=== PATIENT | female | born 1985 | race Caucasian/White ===

== ENCOUNTER 2019-04-02 13:52 | Inpatient (IN) | payer SELFPAY ==
[2019-04-02] MEDS ORDERED: IBUPROFEN 600 MG TABLET PO ONE (14:15)
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
[2019-04-02 14:51] LABS: ABSOLUTE EOSINOPHILS # (AUTO) 0.2 10^3/uL (0.0-0.6); ABSOLUTE LYMPHOCYTES (AUTO) 1.2 10^3/uL (0.5-4.7); ABSOLUTE MONOCYTES (AUTO) 1.2 10^3/uL (0.1-1.4); ABSOLUTE NEUT (AUTO) 10.9 10^3/uL (1.7-8.2); BASOPHILS % (AUTO) 0.2 % (0-2); EOSINOPHILS % (AUTO) 1.3 % (0-6); HEMATOCRIT 33.8 % (36.0-47.0); HEMOGLOBIN 11.1 g/dL (12.0-15.5); MEAN CORPUSCULAR HEMOGLOBIN 27.9 pg (27.0-33.4); MEAN CORPUSCULAR VOLUME 85 fl (80-97); MONOCYTES % (AUTO) 9.2 % (3-13); PLATELET COUNT 121 10^3/uL (150-450); RED CELL DISTRIBUTION WIDTH 14.3 % (11.5-14.0); SEGMENTED NEUTROPHILS % (AUTO) 80.3 % (42-78); TOTAL CELLS COUNTED % (AUTO) 100 %; WHITE BLOOD COUNT 13.6 10^3/uL (4.0-10.5)
[2019-04-02 15:03] LABS: ALBUMIN 2.7 g/dL (3.5-5.0); ALKALINE PHOSPHATASE 186 U/L (38-126); ANION GAP 11 (5-19); ASPARTATE AMINO TRANSFERASE 40 U/L (14-36); BILIRUBIN,DIRECT 0.5 mg/dL (0.0-0.4); BILIRUBIN,TOTAL 0.7 mg/dL (0.2-1.3); BLOOD UREA NITROGEN 14 mg/dL (7-20); CALCIUM 8.3 mg/dL (8.4-10.2); CARBON DIOXIDE 29 mmol/L (22-30); CHLORIDE 97 mmol/L (98-107); GLUCOSE 111 mg/dL (75-110); POTASSIUM 3.4 mmol/L (3.6-5.0); TOTAL PROTEIN 6.4 g/dL (6.3-8.2)
[2019-04-02 15:11] LABS: APPEARANCE,URINE SLIGHTLY-CLOUDY; BILIRUBIN,URINE SMALL (NEGATIVE); COLOR,URINE AMBER; GLUCOSE, URINE NEGATIVE (NEGATIVE); KETONES,URINE NEGATIVE (NEGATIVE); LEUKOCYTE ESTERASE,URINE TRACE (NEGATIVE); NITRITE,URINE NEGATIVE (NEGATIVE); PROTEIN,URINE 30 mg/dL (NEGATIVE); URINE SPECIFIC GRAVITY 1.016
[2019-04-02 15:25] LABS: URINE BARBITURATES SCREEN NEGATIVE; URINE BENZODIAZEPINES SCREEN NEGATIVE; URINE COCAINE SCREEN NEGATIVE; URINE MARIJUANA (THC) SCREEN UNCONFIRMED POSITIVE; URINE METHADONE SCREEN NEGATIVE; URINE PHENCYCLIDINE SCREEN NEGATIVE
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
[2019-04-02] MEDS ORDERED: NORMAL SALINE 1000 ML 1,000 ML IV ONE ×2 (15:48→17:08)
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
--- NOTE | 2019-04-02 16:43 | RADIOLOGY REPORT (SQ) ---
EXAM DESCRIPTION: CTA CHEST COMPLETED DATE/TIME: 04/02/2019 4:31 pm REASON FOR STUDY: eval for septic emboli, abn CXR COMPARISON: Chest radiograph TECHNIQUE: CT scan of the chest performed using helical scanning technique with dynamic intravenous contrast injection. Images reviewed with lung, soft tissue and bone windows. Reconstructed coronal and sagittal MPR images reviewed. Additional 3 dimensional post-processing performed to develop Maximal Intensity Projection images (RI P). All images stored on PACS. All CT scanners at this facility use dose modulation, iterative reconstruction, and/or weight based d osing when appropriate to reduce radiation dose to as low as reasonably achievable (ALARA). [facility]: Dose Right [facility]: CareDose [facility]: Dose Right [facility]: Teradose 4D [facility]: [employer] CONTRAST TYPE AND DOSE: contrast/concentration: Isovue 350.00 mg/ml; Total Contrast Delivered: 43.0 ml; Total Saline Delivered: 73.0 ml Contrast bolus optimized for the pulmonary arteries. Not diagnostic for the aorta. RENAL FUNCTION: None required. The patient is less than 50 years old. RADIATION DOSE: CT Rad equipment meets quality standard of care and radiation dose reduction techniq ues were employed. CTDIvol: 6.5 - 7.5 mGy. DLP: 248 mGy-cm. . LIMITATIONS: None. FINDINGS: LUNGS AND PLEURA: There are multiple poorly defined cavitary masses throughout both lungs. No effusions. No pneumothorax. AORTA AND GREAT VESSELS: No aneurysm. Contrast bolus not optimized for the aorta. HEART: No pericardial effusion. No significant coronary artery calcifications. PULMONARY ARTERIES: No emboli visualized in the main pulmonary arteries or the segmental branches. HILAR AND MEDIASTINAL STRUCTURES: No identified masses or abnormal nodes. HARDWARE: None in the chest. UPPER ABDOMEN: No significant findings. Limited exam. THYROID AND OTHER SOFT TISSUES: No masses. No adenopathy. BONES: No acute or significant finding. 3D MIPS: Confirm above findings. OTHER: No other significant finding. IMPRESSION: Multiple cavitary masses throughout both lungs. In the clinical setting of IV drug use, this represents septic emboli. . Metastatic disease possible though unlikely in this clinical setting. COMMENT: Quality ID # [id number]: Final reports with documentation of one or more dose reduction techniques (e.g., Automated exposure control, adjustment of the mA and/or kV according to patient size, use of iterative reconstruction technique) TECHNICAL DOCUMENTATION: JOB ID: [id number] [facility] [employer]- All Rights Reserved Reading location - IP/workstation name: [email or web address]
[2019-04-02] MEDS ORDERED: PIPERACILLIN/TAZOBACTAM 3.375 GM VIAL IV ONE (17:26)
[2019-04-02] MEDS ORDERED: VANCOMYCIN HCL INJ 1000 MG VIAL IV ONE (17:26)
[2019-04-02] MEDS ORDERED: ONDANSETRON HCL INJ/PF 4 MG/2 ML SDV IV PRN (18:10)
[2019-04-02] MEDS ORDERED: OXYCODONE-ACETAMINOPHEN 5-325 MG TABLET PO PRN (18:10)
[2019-04-02] MEDS ORDERED: NORMAL SALINE 1000 ML 1,000 ML with POTASSIUM CHLORIDE 20 MEQ IV PRN ×2 (18:10)
[2019-04-02] MEDS ORDERED: VANCOMYCIN HCL 0 MG in DEXTROSE 5%-WATER 250 ML IV NR (18:15)
--- NOTE | 2019-04-02 18:19 | Progress Note Acknowledgement ---
Progress Note Acknowledgement Progess Note Acknowledgement: I, the undersigned member of the medical staff with appropriate privileges and with supervisory authority over [Lee Hebert], a dependent practice allied health professional, acknowledge that I have reviewed the progress notes entered on this patient, and in my professional judgment believe that the assessment made and/or any care evidenced was appropriate
[2019-04-02] MEDS ORDERED: POTASSI CL 20 MEQ/NS 1L 1000 ML IV PRN (18:24)
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
[2019-04-02] MEDS ORDERED: TUBERCULIN,PURIF.PROT.DERIV. 5 TU/0.1 ML TEST 1 ML VIAL ID ONE (20:00)
[2019-04-02] MEDS: HYDROMORPHONE HCL INJ/PF 2 MG/ML AMPULE IV PRN (20:46)
[2019-04-02] MEDS: TEMAZEPAM 15 MG CAPSULE PO PRN (22:18)
--- NOTE | 2019-04-02 22:35 | XCELERA REPORT ---
[address] [address] Transthoracic Echocardiogram Report Name: CLEMENTINE LITTLEJOHN Age: 33 yrs Gender: Female : 1985 Patient Status: Inpatient Patient Location: [facility]^A Study Date: 04/02/2019 07:46 PM Height: 62 in Weight: 106 lb BSA: 1.5 m2 Procedure: A two-dimensional transthoracic echocardiogram with color flow and Doppler was performed. The study was technically difficult with many images being suboptimal in quality. The study was technically limited with all images being suboptimal in quality. Reason For Study: septic emboli Endocarditis History: septic emboli Endocarditis. Ordering Physician: TRINA DENSON Performed By: Francine Grover Interpretation Summary Findings discussed with Dr.Paul Concepcion,,Rustist Physician. The left ventricle is normal in size. There is normal left ventricular wall thickness. LV EF is > than 55% The left ventricular ejection fraction is within normal limits. Doppler measurements suggest impaired left ventricular relaxation, which is associated with grade I/IV or mild diastolic dysfunction The left ventricular wall motion is normal. Flattened septum is consistent with RV volume overload There is no thrombus. No defenite ASD or PFO seen The right ventricle is not well visualized secondary to technical limitations The right ventricular systolic function is mildly reduced. The right atrium is mild to moderately dilated. The left atrial size is normal. There is no evidence of mitral valve prolapse. There is no vegetation seen on the mitral valve. There is no mitral valve stenosis. There is a trace amount of mitral regurgitation There is no aortic valvular vegetation. There is no aortic valve stenosis No aortic regurgitation is present. There is a moderate size vegetation or mass on the tricuspid valve. This is freely mobile. There is no tricuspid stenosis. There is a severe amount of tricuspid regurgitation Calculated RVSP is 40 to 45 mm of Hg , with RA mean of 10 to 15.This is mild pulmonary hypertension.I suspect there is undersampling of TR jet and hence underestimation of RVSP. There is no pulmonic valvular stenosis. There is no pulmonic valvular regurgitation. The aortic root is normal size. The inferior vena cava appeared normal and decreased < 50% with respiration (RAP 10-15 mmHg) There is no pericardial effusion. Findings discussed with Dr.Paul Concepcion,Rustist Physician. MMode/2D Measurements & Calculations RVDd: 2.5 cm LVIDd: 4.3 cm FS: 26.8 % Ao root diam: 2.8 cm IVSd: 0.64 cm LVIDs: 3.1 cm EDV(Teich): Ao root area: LVPWd: 0.66 cm 81.1 ml 6.1 cm2 ESV(Teich): LA dimension: 2.9 cm 38.4 ml EF(Teich): 52.6 % LVLd ap4: 6.4 cm SV(MOD-sp4): EDV(MOD-sp4): 25.0 ml 44.0 ml LVLs ap4: 4.7 cm ESV(MOD-sp4): 19.0 ml EF(MOD-sp4): 56.8 % Doppler Measurements & Calculations MV E max luke: MV P1/2t max luke: Ao V2 max: LV V1 max P.4 cm/sec 85.3 cm/sec 127.0 cm/sec 4.5 mmHg MV A max luke: MV P1/2t: 50.1 msec Ao max P.5 mmHgLV V1 max: 80.6 cm/sec MVA(P1/2t): 4.4 cm2 106.1 cm/sec MV E/A: 0.92 MV dec slope: 499.1 cm/sec2 MV dec time: 0.23 sec PA V2 max: TR max luke: MV P1/2t-pr_phl: 109.7 cm/sec 274.2 cm/sec 50.1 msec PA max P.8 mmHgTR max P.1 mmHg Left Ventricle The left ventricle is normal in size. There is normal left ventricular wall thickness. LV EF is > than 55%. The left ventricular ejection fraction is within normal limits. Doppler measurements suggest impaired left ventricular relaxation, which is associated with grade I/IV or mild diastolic dysfunction. The left ventricular wall motion is normal. Flattened septum is consistent with RV volume overload. There is no thrombus. No defenite ASD or PFO seen. Right Ventricle The right ventricle is not well visualized secondary to technical limitations. The right ventricle is mildly dilated. The right ventricular systolic function is mildly reduced. Atria The right atrium is mild to moderately dilated. The left atrial size is normal. Mitral Valve There is no evidence of mitral valve prolapse. There is no vegetation seen on the mitral valve. There is no mitral valve stenosis. There is a trace amount of mitral regurgitation. Aortic Valve There is no aortic valvular vegetation. There is no aortic valve stenosis. No aortic regurgitation is present. Tricuspid Valve There is a moderate size vegetation or mass on the tricuspid valve. This is freely mobile. There is no tricuspid stenosis. There is a severe amount of tricuspid regurgitation. Calculated RVSP is 40 to 45 mm of Hg , with RA mean of 10 to 15.This is mild pulmonary hypertension.I suspect there is undersampling of TR jet and hence underestimation of RVSP. Pulmonic Valve There is no pulmonic valvular stenosis. There is no pulmonic valvular regurgitation. Great Vessels The aortic root is normal size. The inferior vena cava appeared normal and decreased < 50% with respiration (RAP 10-15 mmHg). Effusions There is no pericardial effusion. : TRINA DENSON > Ariadne Wilkinson
[2019-04-03] MEDS: PIPERACILLIN SODIUM/TAZOBACTAM 3.375 GM in NORMAL SALINE 100 ML IV SCH ×4 (00:44→21:07)
[2019-04-03] MEDS: VANCOMYCIN HCL 500 MG in DEXTROSE 5%-WATER 100 ML IV SCH ×3 (02:30→21:08)
[2019-04-03] MEDS: HYDROMORPHONE HCL INJ/PF 2 MG/ML AMPULE IV PRN ×4 (04:16→21:06)
--- NOTE | 2019-04-03 08:17 | PDOC PROGRESS REPORT ---
Subjective Progress Note for:: 04/03/19 Subjective:: Continued pain in her coccyx Reason For Visit: MULTIPLE SEPTIC EMBOLI, IV DRUG ABUSE, TOBACCO Physical Exam Vital Signs: Temp Pulse Resp BP Pulse Ox 99.0 F 119 H 38 H 100/56 L 97 04/03/19 00:55 04/03/19 07:00 04/03/19 00:55 04/03/19 01:01 04/03/19 00:55 Intake & Output 04/02/19 04/03/19 04/04/19 06:59 06:59 06:59 Intake Total 2630 Balance 2630 Weight 50.1 kg General appearance: PRESENT: no acute distress, well-developed, well-nourished Head exam: PRESENT: atraumatic, normocephalic Eye exam: PRESENT: conjunctiva pink, EOMI, PERRLA. ABSENT: scleral icterus Ear exam: PRESENT: normal external ear exam Mouth exam: PRESENT: moist, tongue midline Neck exam: ABSENT: carotid bruit, JVD, lymphadenopathy, thyromegaly Respiratory exam: PRESENT: clear to auscultation michelle. ABSENT: rales, rhonchi, wheezes Cardiovascular exam: PRESENT: RRR. ABSENT: diastolic murmur, rubs, systolic murmur Pulses: PRESENT: normal dorsalis pedis pul Vascular exam: PRESENT: normal capillary refill GI/Abdominal exam: PRESENT: normal bowel sounds, soft. ABSENT: distended, guarding, mass, organolmegaly, rebound, tenderness Rectal exam: PRESENT: deferred Extremities exam: PRESENT: full ROM. ABSENT: calf tenderness, clubbing, pedal edema Neurological exam: PRESENT: alert, awake, oriented to person, oriented to place, oriented to time, oriented to situation, CN II-XII grossly intact. ABSENT: m otor sensory deficit Psychiatric exam: PRESENT: appropriate affect, normal mood. ABSENT: homicidal ideation, suicidal ideation Skin exam: PRESENT: dry, intact, warm, other - Multiple bruising. ABSENT: cyanosis, rash Results Laboratory Results: 04/02/19 14:29 04/02/19 14:29 04/02/19 04/02/19 04/02/19 14:27 14:29 14:29 WBC 13.6 H RBC 4.00 Hgb 11.1 L Hct 33.8 L MCV 85 MCH 27.9 MCHC 33.0 RDW 14.3 H Plt Count 121 L Seg Neutrophils % 80.3 H Sodium 136.9 L Potassium 3.4 L Chloride 97 L Carbon Dioxide 29 Anion Gap 11 BUN 14 Creatinine 0.54 Est GFR ( Amer) > 60 Glucose 111 H Lactic Acid Calcium 8.3 L Total Bilirubin 0.7 AST 40 H Alkaline Phosphatase 186 H Total Protein 6.4 Albumin 2.7 L Urine Color JACKIE Urine Appearance SLIGHTLY-CLOUDY Urine pH 6.0 Ur Specific Cobb 1.016 Urine Protein 30 H Urine Glucose (UA) NEGATIVE Urine Ketones NEGATIVE Urine Blood SMALL H Urine Nitrite NEGATIVE Ur Leukocyte Esterase TRACE H Urine WBC (Auto) 6 Urine RBC (Auto) 6 04/02/19 18:08 WBC RBC Hgb Hct MCV MCH MCHC RDW Plt Count Seg Neutrophils % Sodium Potassium Chloride Carbon Dioxide Anion Gap BUN Creatinine Est GFR ( Amer) Glucose Lactic Acid 1.7 Calcium Total Bilirubin AST Alkaline Phosphatase Total Protein Albumin Urine Color Urine Appearance Urine pH Ur Specific Cobb Urine Protein Urine Glucose (UA) Urine Ketones Urine Blood Urine Nitrite Ur Leukocyte Esterase Urine WBC (Auto) Urine RBC (Auto) Impressions: Lumbar Spine X-Ray 04/02/19 14:15 IMPRESSION: NORMAL 5 VIEW LUMBAR SPINE. Ribs w/Chest X-Ray 04/02/19 14:15 IMPRESSION: SEPTIC EMBOLI. NO RIB FRACTURES. Chest/Abdomen CTA 04/02/19 15:30 IMPRESSION: Multiple cavitary masses throughout both lungs. In the clinical setting of IV drug use, this represents septic emboli. . Metastatic disease possible though unlikely in this clinical setting. Assessment and Plan - Diagnosis (1) Septic pulmonary embolism Qualifiers: Chronicity: acute Is this a current diagnosis for this admission?: Yes Plan: April 02, 2019-at this time will admit patient inpatient. Will give patient IV vancomycin and Zosyn. Await cultures. Will obtain an echocardiogram and a PRAFUL if echocardiogram is nonconclusive. We will continue to follow patient make change plan of care as appropriate April 03, 2019-continue IV vancomycin and Zosyn at this time. Await cultures. Await echocardiogram. May change plan of care as appropriate. (2) Cavitary lesion of lung Is this a current diagnosis for this admission?: Yes Plan: April 02, 2019-patient with known IV drug abuse heroin. Patient with multiple cavitary lesions throughout both right and left lung. We will treat patient with Vanco and Zosyn at this time will obtain an echocardiogram. I am also going to check patient for HIV, hepatitis, TB with AFB and QuantiFERON testing patient will be in airborne isolation April 03, 2019-HIV negative. Hepatitis is pending. TB and AFB and QuantiFERON is pending. Will order 2 more separate AFBs. Await echocardiogram (3) Hypokalemia Is this a current diagnosis for this admission?: Yes Plan: April 02, 2019-normal saline with 20 mg KCl at 100 mL an hour repeat BMP in the a.m. April 03, 2019-await a.m. labs continue saline with potassium chloride DC when potassium is normal limits. (4) Pain Is this a current diagnosis for this admission?: Yes Plan: April 02, 2019-Percocet 5/325 mg 1 p.o. every 4 hours as needed and Dilaudid 1 mg IV every 4 hours as needed. April 03, 2019-DC Percocet. Methadone 20 mg scheduled every 8 hours increase Dilaudid 1 mg every 3 hours PRN. (5) Hyponatremia Is this a current diagnosis for this admission?: Yes Plan: April 02, 2019-very mild sodium 136 patient will begin normal saline we will repeat BMP in a.m. April 03, 2019-awaiting a.m. labs (6) Tobacco abuse Is this a current diagnosis for this admission?: Yes Plan: April 02, 2019-continue to drapery counselor on cessation of tobacco abuse. Nicotine patches as needed April 03, 2019-continue tobacco abuse counseling nicotine patches as needed - Time Time Spent with patient: 15-24 minutes - Inpatient Certification Based on my medical assessment, after consideration of the patient's comorbidities, presenting symptoms, or acuity I expect that the services needed warrant INPATIENT care.: Yes I certify that my determination is in accordance with my understanding of Medicare's requirements for reasonable and necessary INPATIENT services [42 CFR 412.3e].: Yes Medical Necessity: Other - IV antibodies, IV fluids
[2019-04-03 08:43] LABS: ABSOLUTE LYMPHOCYTES (AUTO) 1.4 10^3/uL (0.5-4.7); ABSOLUTE MONOCYTES (AUTO) 1.5 10^3/uL (0.1-1.4); ABSOLUTE NEUT (AUTO) 12.6 10^3/uL (1.7-8.2); BASOPHILS % (AUTO) 0.3 % (0-2); EOSINOPHILS % (AUTO) 0.3 % (0-6); HEMATOCRIT 34.6 % (36.0-47.0); HEMOGLOBIN 11.6 g/dL (12.0-15.5); LYMPHOCYTES % (AUTO) 9.2 % (13-45); MEAN CORPUSCULAR HEMOGLOBIN 28.1 pg (27.0-33.4); MEAN CORPUSCULAR HGB CONC 33.5 g/dL (32.0-36.0); MEAN CORPUSCULAR VOLUME 84 fl (80-97); MONOCYTES % (AUTO) 9.7 % (3-13); RED BLOOD COUNT 4.11 10^6/uL (3.72-5.28); SEGMENTED NEUTROPHILS % (AUTO) 80.5 % (42-78); TOTAL CELLS COUNTED % (AUTO) 100 %; WHITE BLOOD COUNT 15.6 10^3/uL (4.0-10.5)
[2019-04-03 09:01] LABS: PLATELET COUNT 146 10^3/uL (150-450)
[2019-04-03 09:08] LABS: ANION GAP 11 (5-19); BLOOD UREA NITROGEN 7 mg/dL (7-20); CALCIUM 7.7 mg/dL (8.4-10.2); CARBON DIOXIDE 25 mmol/L (22-30); CHLORIDE 100 mmol/L (98-107); GLUCOSE 129 mg/dL (75-110); PHOSPHORUS 4.9 mg/dL (2.5-4.5); POTASSIUM 4.1 mmol/L (3.6-5.0)
[2019-04-03] MEDS: METHADONE HCL 10 MG TABLET PO SCH ×3 (09:19→21:07)
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
--- NOTE | 2019-04-03 09:28 | RADIOLOGY REPORT (SQ) ---
EXAM DESCRIPTION: ANKLE RIGHT AP/LATERAL COMPLETED DATE/TIME: 04/03/2019 9:18 am REASON FOR STUDY: RIGHT ANKLE PAIN COMPARISON: None. NUMBER OF VIEWS: Two views. TECHNIQUE: AP and lateral radiographic images acquired of the right ankle. LIMITATIONS: None. FINDINGS: MINERALIZATION: Normal. BONES: No acute fracture or dislocation. No worrisome bone lesions. JOINTS: No effusions. SOFT TISSUES: No soft tissue swelling. No foreign body. OTHER: No other significant finding. IMPRESSION: NEGATIVE STUDY OF THE RIGHT ANKLE. NO RADIOGRAPHIC EVIDENCE OF ACUTE INJURY. TECHNICAL DOCUMENTATION: JOB ID: [id number] [employer]- All Rights Reserved Reading location - IP/workstation name: [email or web address]
--- NOTE | 2019-04-03 09:29 | RADIOLOGY REPORT (SQ) ---
EXAM DESCRIPTION: PELVIS AP COMPLETED DATE/TIME: 04/03/2019 9:19 am REASON FOR STUDY: PELVIC/SACRAL PAIN COMPARISON: None. NUMBER OF VIEWS: One view TECHNIQUE: AP Pelvis LIMITATIONS: None. FINDINGS: MINERALIZATION: Normal. HIPS: No acute fracture or dislocation. No worrisome bone lesions. PELVIS AND SACRUM: No acute fracture or dislocation. No worrisome bone lesions. PUBIS AND ISCHIUM: No acute fracture. LOWER LUMBAR SPINE: No significant findings as visualized. SOFT TISSUES: No findings. OTHER: No other significant finding. IMPRESSION: NEGATIVE STUDY OF THE PELVIS. COMMENT: Pelvic fractures are often occult on plain radiographs. If strong clinical suspicion for f racture, recommend CT or MR. TECHNICAL DOCUMENTATION: JOB ID: [id number] [email or web address]- All Rights Reserved Reading location - IP/workstation name: [email or web address]
[2019-04-03] MEDS: MAGNESIUM SULFATE/D5W 1 GM/100 ML RTUPB IV SCH ×2 (14:10→17:32)
--- NOTE | 2019-04-03 14:15 | RADIOLOGY REPORT (SQ) ---
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 FLUOROSCOPY TIME: 0.09 seconds 2 images saved to PACS. TECHNIQUE: Fluoroscopic and ultrasound guided PICC placement. LIMITATIONS: None. PROCEDURE: After written consent and assessment were obtained, the patient was brought into the fluo roscopy room and placed supine on the table. Ultrasound evaluation of potential access sites were per formed. After successfully identifying a patent left basilic vein, the left arm was prepped and drape d in a sterile fashion along with the ultrasound probe. The entry site was anesthetized with 1% lidoc marlene. A 21 gauge 7 cm needle was advanced through the skin and into the brachial vein under live ultr asound guidance. An ultrasound image was saved to PACS confirming access site. A .018 guide wire wa s then inserted through the needle and into the venous system. The needle was then removed and an 11 blade scalpel was used to make a 1cm skin incision. A 5 fr peel-away sheath was advanced over the wi re and into the venous system. A measurement was then made using the existing wire and live fluorosco pic guidance. The wire was then removed and trimmed. The PICC was advanced through the peel-away cormier th and into the venous system. The peel-away sheath was removed and the catheter was adhered to the p atients arm with a stat lock. The catheter was then aspirated and flushed and a sterile bandage was p laced over the access site. A fluoroscopic spot image was saved to PACS confirming the catheter tip within the superior vena cava. IMPRESSION: SUCCESSFUL PLACEMENT OF A 5 FR all LUMEN 33 CM PICC IN THE LEFT BRACHIAL VEIN. COMMENT: Patient medication list reviewed: Yes- Quality ID# 130:Eligible professional attests to doc umenting in the medical record they obtained, updated, or reviewed the patient's current medications. . Quality ID 145: Final reports for procedures using fluoroscopy that document radiation exposure flaca timothy, or exposure time and number of fluorographic images (if radiation exposure indices are not avail able) Quality ID #76: The patient was prepped and draped using maximum sterile barrier technique including cap, mask, sterile gown, sterile gloves, a large sterile sheet, hand hygiene, and 2% Chlorhexidine fo r cutaneous antisepsis. When ultrasound is used, sterile ultrasound techniques are followed requiring sterile gel and sterile probes. TECHNICAL DOCUMENTATION: JOB ID: [id number] [employer]- All Rights Reserved rev-12/27 Reading location - IP/workstation name: [email or web address]
--- NOTE | 2019-04-03 14:15 | RADIOLOGY REPORT (SQ) ---
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 FLUOROSCOPY TIME: 0.09 seconds 2 images saved to PACS. TECHNIQUE: Fluoroscopic and ultrasound guided PICC placement. LIMITATIONS: None. PROCEDURE: After written consent and assessment were obtained, the patient was brought into the fluo roscopy room and placed supine on the table. Ultrasound evaluation of potential access sites were per formed. After successfully identifying a patent left basilic vein, the left arm was prepped and drape d in a sterile fashion along with the ultrasound probe. The entry site was anesthetized with 1% lidoc marlene. A 21 gauge 7 cm needle was advanced through the skin and into the brachial vein under live ultr asound guidance. An ultrasound image was saved to PACS confirming access site. A .018 guide wire wa s then inserted through the needle and into the venous system. The needle was then removed and an 11 blade scalpel was used to make a 1cm skin incision. A 5 fr peel-away sheath was advanced over the wi re and into the venous system. A measurement was then made using the existing wire and live fluorosco pic guidance. The wire was then removed and trimmed. The PICC was advanced through the peel-away cormier th and into the venous system. The peel-away sheath was removed and the catheter was adhered to the p atients arm with a stat lock. The catheter was then aspirated and flushed and a sterile bandage was p laced over the access site. A fluoroscopic spot image was saved to PACS confirming the catheter tip within the superior vena cava. IMPRESSION: SUCCESSFUL PLACEMENT OF A 5 FR all LUMEN 33 CM PICC IN THE LEFT BRACHIAL VEIN. COMMENT: Patient medication list reviewed: Yes- Quality ID# 130:Eligible professional attests to doc umenting in the medical record they obtained, updated, or reviewed the patient's current medications. . Quality ID 145: Final reports for procedures using fluoroscopy that document radiation exposure flaca timothy, or exposure time and number of fluorographic images (if radiation exposure indices are not avail able) Quality ID #76: The patient was prepped and draped using maximum sterile barrier technique including cap, mask, sterile gown, sterile gloves, a large sterile sheet, hand hygiene, and 2% Chlorhexidine fo r cutaneous antisepsis. When ultrasound is used, sterile ultrasound techniques are followed requiring sterile gel and sterile probes. TECHNICAL DOCUMENTATION: JOB ID: [id number] [employer]- All Rights Reserved rev-12/27 Reading location - IP/workstation name: [email or web address]
--- NOTE | 2019-04-03 14:15 | RADIOLOGY REPORT (SQ) ---
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 FLUOROSCOPY TIME: 0.09 seconds 2 images saved to PACS. TECHNIQUE: Fluoroscopic and ultrasound guided PICC placement. LIMITATIONS: None. PROCEDURE: After written consent and assessment were obtained, the patient was brought into the fluo roscopy room and placed supine on the table. Ultrasound evaluation of potential access sites were per formed. After successfully identifying a patent left basilic vein, the left arm was prepped and drape d in a sterile fashion along with the ultrasound probe. The entry site was anesthetized with 1% lidoc marlene. A 21 gauge 7 cm needle was advanced through the skin and into the brachial vein under live ultr asound guidance. An ultrasound image was saved to PACS confirming access site. A .018 guide wire wa s then inserted through the needle and into the venous system. The needle was then removed and an 11 blade scalpel was used to make a 1cm skin incision. A 5 fr peel-away sheath was advanced over the wi re and into the venous system. A measurement was then made using the existing wire and live fluorosco pic guidance. The wire was then removed and trimmed. The PICC was advanced through the peel-away cormier th and into the venous system. The peel-away sheath was removed and the catheter was adhered to the p atients arm with a stat lock. The catheter was then aspirated and flushed and a sterile bandage was p laced over the access site. A fluoroscopic spot image was saved to PACS confirming the catheter tip within the superior vena cava. IMPRESSION: SUCCESSFUL PLACEMENT OF A 5 FR all LUMEN 33 CM PICC IN THE LEFT BRACHIAL VEIN. COMMENT: Patient medication list reviewed: Yes- Quality ID# 130:Eligible professional attests to doc umenting in the medical record they obtained, updated, or reviewed the patient's current medications. . Quality ID 145: Final reports for procedures using fluoroscopy that document radiation exposure flaca timothy, or exposure time and number of fluorographic images (if radiation exposure indices are not avail able) Quality ID #76: The patient was prepped and draped using maximum sterile barrier technique including cap, mask, sterile gown, sterile gloves, a large sterile sheet, hand hygiene, and 2% Chlorhexidine fo r cutaneous antisepsis. When ultrasound is used, sterile ultrasound techniques are followed requiring sterile gel and sterile probes. TECHNICAL DOCUMENTATION: JOB ID: [id number] [employer]- All Rights Reserved rev-12/27 Reading location - IP/workstation name: [email or web address]
[2019-04-03] MEDS ORDERED: MAGNESIUM SULFATE/D5W 1 GM/100 ML RTUPB IV ONE (15:49)
[2019-04-03] MEDS ORDERED: HYDROMORPHONE HCL INJ/PF 2 MG/ML AMPULE IV ONE (16:09)
[2019-04-03] MEDS ORDERED: NORMAL SALINE 1000 ML 1,000 ML IV PRN (16:11)
[2019-04-03 17:16] LABS: PHOSPHORUS 3.3 mg/dL (2.5-4.5)
--- NOTE | 2019-04-03 19:23 | RADIOLOGY REPORT (SQ) ---
EXAM DESCRIPTION: CT ABD/PELVIS WITH IV ONLY COMPLETED DATE/TIME: 04/03/2019 6:58 pm REASON FOR STUDY: buttock pain COMPARISON: 04/02/2019 TECHNIQUE: CT scan of the abdomen and pelvis performed using helical scanning technique with dynamic intravenous contrast injection. No oral contrast. Images reviewed with lung, soft tissue, and bone w indows. Reconstructed coronal and sagittal MPR images reviewed. Delayed images for evaluation of the urinary system also acquired. All images stored on PACS. All CT scanners at this facility use dose modulation, iterative reconstruction, and/or weight based d osing when appropriate to reduce radiation dose to as low as reasonably achievable (ALARA). [facility]: Dose Right [facility]: CareDose [facility]: Dose Right [facility]: Teradose 4D [facility]: WallCompass CONTRAST TYPE AND DOSE: contrast/concentration: Isovue 350.00 mg/ml; Total Contrast Delivered: 57.0 ml; Total Saline Delivered: 65.0 ml RENAL FUNCTION: None required. The patient is less than 50 years old. RADIATION DOSE: CT Rad equipment meets quality standard of care and radiation dose reduction techniq ues were employed. CTDIvol: 3.4 - 4.0 mGy. DLP: 422 mGy-cm.. LIMITATIONS: None. FINDINGS: LOWER CHEST: Increasing consolidation in both lower lobes and small pleural effusions. Pe rsistent numerous cavitary lesions. LIVER: Mild hepatomegaly. . No enhancing masses. No dilated ducts. SPLEEN: Normal size. No focal lesions. PANCREAS: No masses identified. No significant calcifications. No adjacent inflammation or peripancre atic fluid collections. Pancreatic duct not dilated. GALLBLADDER: No calcified stones. No inflammatory changes to suggest cholecystitis. ADRENAL GLANDS: No significant masses. RIGHT KIDNEY AND URETER: No cysts identified. No solid masses identified. No calcified stones. No hyd ronephrosis or hydroureter. LEFT KIDNEY AND URETER: No cysts identified. No solid masses identified. No calcified stones. No hydr onephrosis or hydroureter. AORTA AND VESSELS: No aneurysm. No dissection. Renal arteries, SMA, celiac without significant stenos is. RETROPERITONEUM: No bulky retroperitoneal adenopathy. BOWEL AND PERITONEAL CAVITY: No obstruction or inflammatory changes. No free fluid. APPENDIX: Not visualized. PELVIS: Small amount of pelvic free fluid. Coe catheter decompresses the bladder. ABDOMINAL WALL: No masses. No hernias. BONES: No acute findings. OTHER: No other significant finding. IMPRESSION: Small amount of pelvic free fluid. Coe catheter decompresses the bladder. Increasing consolidation in both lower lobes and small pleural effusions. Persistent numerous pulmon zofia cavitary lesions. TECHNICAL DOCUMENTATION: JOB ID: [id number] [place]-72 Quality ID # [id number]: Final reports with documentation of one or more dose reduction techniques (e.g., Au tomated exposure control, adjustment of the mA and/or kV according to patient size, use of iterative reconstruction technique) 2010 [employer]- All Rights Reserved Reading location - IP/workstation name: [email or web address]
[2019-04-03 20:14] LABS: VANCOMYCIN,TROUGH 7.1 ug/mL (5.0-20.0)
[2019-04-03] MEDS: TEMAZEPAM 15 MG CAPSULE PO PRN (21:07)
[2019-04-03] MEDS: VANCOMYCIN HCL 750 MG in DEXTROSE 5%-WATER 250 ML IV SCH (21:18)
[2019-04-03] MEDS: ACETAMINOPHEN 325 MG TABLET PO PRN (22:37)
[2019-04-04] MEDS: PIPERACILLIN SODIUM/TAZOBACTAM 3.375 GM in NORMAL SALINE 100 ML IV SCH ×4 (00:50→17:01)
[2019-04-04 05:28] LABS: ABSOLUTE BASOPHILS # (AUTO) 0.1 10^3/uL (0.0-0.2); ABSOLUTE EOSINOPHILS # (AUTO) 0.1 10^3/uL (0.0-0.6); ABSOLUTE LYMPHOCYTES (AUTO) 2.1 10^3/uL (0.5-4.7); ABSOLUTE MONOCYTES (AUTO) 1.6 10^3/uL (0.1-1.4); ABSOLUTE NEUT (AUTO) 12.1 10^3/uL (1.7-8.2); BASOPHILS % (AUTO) 0.7 % (0-2); EOSINOPHILS % (AUTO) 0.7 % (0-6); HEMATOCRIT 24.7 % (36.0-47.0); LYMPHOCYTES % (AUTO) 13.1 % (13-45); MEAN CORPUSCULAR HEMOGLOBIN 28.3 pg (27.0-33.4); MEAN CORPUSCULAR HGB CONC 33.6 g/dL (32.0-36.0); MEAN CORPUSCULAR VOLUME 84 fl (80-97); MONOCYTES % (AUTO) 9.9 % (3-13); PLATELET COUNT 180 10^3/uL (150-450); RED BLOOD COUNT 2.93 10^6/uL (3.72-5.28); RED CELL DISTRIBUTION WIDTH 14.2 % (11.5-14.0); SEGMENTED NEUTROPHILS % (AUTO) 75.6 % (42-78); TOTAL CELLS COUNTED % (AUTO) 100 %
[2019-04-04 05:50] LABS: ANION GAP 7 (5-19); BLOOD UREA NITROGEN 7 mg/dL (7-20); CARBON DIOXIDE 28 mmol/L (22-30); CHLORIDE 103 mmol/L (98-107); GLUCOSE 93 mg/dL (75-110)
[2019-04-04] MEDS: VANCOMYCIN HCL 750 MG in DEXTROSE 5%-WATER 250 ML IV SCH ×3 (06:02→21:23)
[2019-04-04 06:05] LABS: POTASSIUM 3.1 mmol/L (3.6-5.0)
[2019-04-04] MEDS: METHADONE HCL 10 MG TABLET PO SCH ×3 (06:07→21:23)
[2019-04-04 06:08] LABS: CALCIUM 6.9 mg/dL (8.4-10.2)
[2019-04-04 06:09] LABS: HEMOGLOBIN 8.3 g/dL (12.0-15.5)
[2019-04-04] MEDS: HYDROMORPHONE HCL INJ/PF 2 MG/ML AMPULE IV PRN ×2 (08:16→20:02)
[2019-04-04] MEDS ORDERED: CALCIUM GLUCONATE 1,000 MG in DEXTROSE 5%-WATER 50 ML IV ONE (08:50)
--- NOTE | 2019-04-04 09:01 | PDOC PROGRESS REPORT ---
Subjective Progress Note for:: 04/04/19 Subjective:: Continued pain in her coccyx April 04 2019-no complaints this a.m. Reason For Visit: MULTIPLE SEPTIC EMBOLI, IV DRUG ABUSE, TOBACCO Physical Exam Vital Signs: Temp Pulse Resp BP Pulse Ox 99.1 F 108 H 16 120/69 94 04/04/19 08:00 04/04/19 08:00 04/04/19 08:00 04/04/19 08:00 04/04/19 08:00 Intake & Output 04/03/19 04/04/19 04/05/19 06:59 06:59 06:59 Intake Total 2850 1475 250 Output Total 1000 Balance 2850 475 250 Weight 50.2 kg 53.5 kg General appearance: PRESENT: no acute distress, well-developed, well-nourished Head exam: PRESENT: atraumatic, normocephalic Eye exam: PRESENT: conjunctiva pink, EOMI, PERRLA. ABSENT: scleral icterus Ear exam: PRESENT: normal external ear exam Mouth exam: PRESENT: moist, tongue midline, other - Oral thrush Neck exam: ABSENT: carotid bruit, JVD, lymphadenopathy, thyromegaly Respiratory exam: PRESENT: decreased breath sounds, rhonchi, symmetrical, unlabored, wheezes. ABSENT: rales Cardiovascular exam: PRESENT: RRR. ABSENT: diastolic murmur, rubs, systolic murmur Pulses: PRESENT: normal dorsalis pedis pul Vascular exam: PRESENT: normal capillary refill GI/Abdominal exam: PRESENT: normal bowel sounds, soft. ABSENT: distended, guarding, mass, organolmegaly, rebound, tenderness Rectal exam: PRESENT: deferred Extremities exam: PRESENT: full ROM. ABSENT: calf tenderness, clubbing, pedal edema Neurological exam: PRESENT: alert, awake, oriented to person, oriented to place, oriented to time, oriented to situation, CN II-XII grossly intact. ABSENT: motor sensory deficit Psychiatric exam: PRESENT: appropriate affect, normal mood. ABSENT: homicidal ideation, suicidal ideation Skin exam: PRESENT: dry, intact, warm. ABSENT: cyanosis, rash Results Laboratory Results: 04/04/19 05:00 04/04/19 05:00 04/03/19 04/03/19 04/03/19 07:37 07:37 16:21 WBC 15.6 H RBC 4.11 Hgb 11.6 L Hct 34.6 L MCV 84 MCH 28.1 MCHC 33.5 RDW 14.0 Plt Count 146 L Seg Neutrophils % 80.5 H Sodium 136.2 L Potassium 4.1 Chloride 100 Carbon Dioxide 25 Anion Gap 11 BUN 7 Creatinine 0.42 L Est GFR ( Amer) > 60 Glucose 129 H Lactic Acid 0.8 Calcium 7.7 L Phosphorus 4.9 H Magnesium 1.4 L 04/03/19 04/04/19 04/04/19 16:21 05:00 05:00 WBC 16.0 H RBC 2.93 L Hgb 8.3 L D Hct 24.7 L MCV 84 MCH 28.3 MCHC 33.6 RDW 14.2 H Plt Count 180 Seg Neutrophils % 75.6 Sodium 137.9 Potassium 3.1 L D Chloride 103 Carbon Dioxide 28 Anion Gap 7 BUN 7 Creatinine 0.48 L Est GFR ( Amer) > 60 Glucose 93 Lactic Acid Calcium 6.9 L* Phosphorus 3.3 Magnesium 1.7 2.1 Impressions: Lumbar Spine X-Ray 04/02/19 14:15 IMPRESSION: NORMAL 5 VIEW LUMBAR SPINE. Ribs w/Chest X-Ray 04/02/19 14:15 IMPRESSION: SEPTIC EMBOLI. NO RIB FRACTURES. Chest/Abdomen CTA 04/02/19 15:30 IMPRESSION: Multiple cavitary masses throughout both lungs. In the clinical setting of IV drug use, this represents septic emboli. . Metastatic disease possible though unlikely in this clinical setting. Abdomen/Pelvis CT 04/03/19 00:00 IMPRESSION: Small amount of pelvic free fluid. Coe catheter decompresses the bladder. Increasing consolidation in both lower lobes and small pleural effusions. Persistent numerous pulmonary cavitary lesions. Ankle X-Ray 04/03/19 00:00 IMPRESSION: NEGATIVE STUDY OF THE RIGHT ANKLE. NO RADIOGRAPHIC EVIDENCE OF ACUTE INJURY. Guidance Fluoroscopy 04/03/19 00:00 IMPRESSION: SUCCESSFUL PLACEMENT OF A 5 FR all LUMEN 33 CM PICC IN THE LEFT BRACHIAL VEIN. Interventional Vascular Procedure 04/03/19 00:00 IMPRESSION: SUCCESSFUL PLACEMENT OF A 5 FR all LUMEN 33 CM PICC IN THE LEFT BRACHIAL VEIN. PICC Line Insertion 04/03/19 00:00 IMPRESSION: SUCCESSFUL PLACEMENT OF A 5 FR all LUMEN 33 CM PICC IN THE LEFT BRACHIAL VEIN. Pelvis X-Ray 04/03/19 00:00 IMPRESSION: NEGATIVE STUDY OF THE PELVIS. Sacrum and Coccyx X-Ray 04/03/19 00:00 IMPRESSION: NEGATIVE STUDY OF THE SACRUM AND COCCYX. Assessment and Plan - Diagnosis (1) Septic pulmonary embolism Qualifiers: Chronicity: acute Is this a current diagnosis for this admission?: Yes Plan: April 02, 2019-at this time will admit patient inpatient. Will give patient IV vancomycin and Zosyn. Await cultures. Will obtain an echocardiogram and a PRAFUL if echocardiogram is nonconclusive. We will continue to follow patient make change plan of care as appropriate April 03, 2019-continue IV vancomycin and Zosyn at this time. Await cultures. Await echocardiogram. May change plan of care as appropriate. April 04, 2019-white count up to 16,000 today. IV vancomycin and Zosyn as running. Patient did show gram-positive cocci in tube blood cultures. Blood cultures are being repeated. Echocardiogram shows a vegetation on the tricuspid valve. We will continue current therapy (2) Cavitary lesion of lung Is this a current diagnosis for this admission?: Yes Plan: April 02, 2019-patient with known IV drug abuse heroin. Patient with multiple cavitary lesions throughout both right and left lung. We will treat patient with Vanco and Zosyn at this time will obtain an echocardiogram. I am also going to check patient for HIV, hepatitis, TB with AFB and QuantiFERON testing patient will be in airborne isolation April 03, 2019-HIV negative. Hepatitis is pending. TB and AFB and QuantiFERON is pending. Will order 2 more separate AFBs. Await echocardiogram April 04, 2019-continue IV antibiotics at this time. Awaiting TB AFB and QuantiFERON studies. (3) Hypokalemia Is this a current diagnosis for this admission?: Yes Plan: April 02, 2019-normal saline with 20 mg KCl at 100 mL an hour repeat BMP in the a.m. April 03, 2019-await a.m. labs continue saline with potassium chloride DC when potassium is normal limits. April 04, 2019-potassium level 3.1 this a.m. We will give potassium chloride 40 mEq p.o. every 4 hours x3 doses. Repeat BMP in a.m. (4) Pain Is this a current diagnosis for this admission?: Yes Plan: April 02, 2019-Percocet 5/325 mg 1 p.o. every 4 hours as needed and Dilaudid 1 mg IV every 4 hours as needed. April 03, 2019-DC Percocet. Methadone 20 mg scheduled every 8 hours increase Dilaudid 1 mg every 3 hours PRN. April 04, 2019-continue methadone 20 mg scheduled every 8 hours and I increase Dilaudid to 1 mg every 2 hours as needed. (5) Hyponatremia Is this a current diagnosis for this admission?: Yes Plan: April 02, 2019-very mild sodium 136 patient will begin normal saline we will repeat BMP in a.m. April 03, 2019-awaiting a.m. labs April 04, 2019-resolved at this time sodium 137.9. Daily BMPs (6) Tobacco abuse Is this a current diagnosis for this admission?: Yes Plan: April 02, 2019-continue to rehab/pre vocational counselor on cessation of tobacco abuse. Nicotine patches as needed April 03, 2019-continue tobacco abuse counseling nicotine patches as needed April 03, 2019-continue to rehab/pre vocational counselor on smoking cessation (7) IV drug abuse Is this a current diagnosis for this admission?: Yes Plan: April 04, 2019-continue to educate about abstaining from IV drug abuse (8) Hypocalcemia Is this a current diagnosis for this admission?: Yes Plan: April 04, 2019-patient's calcium is one 6.9 corrected for albumin to 7.3. Will give 1 g IV calcium gluconate repeat calcium level in the a.m. (9) Anemia Is this a current diagnosis for this admission?: Yes Plan: April 04, 2019-most likely dilutional in nature. We will continue to follow daily CBCs. - Time Time Spent with patient: 25-34 minutes - Inpatient Certification Based on my medical assessment, after consideration of the patient's comorbidities, presenting symptoms, or acuity I expect that the services needed warrant INPATIENT care.: Yes I certify that my determination is in accordance with my understanding of Medicare's requirements for reasonable and necessary INPATIENT services [42 CFR 412.3e].: Yes Medical Necessity: Other - IV antibiotics, IV pain control
[2019-04-04] MEDS: POTASSIUM CHLORIDE 10 MEQ CAPSULE.ER PO SCH ×3 (09:24→17:00)
[2019-04-04] MEDS: DOCUSATE SODIUM 100 MG CAPSULE PO SCH ×2 (09:24→17:00)
[2019-04-04] MEDS ORDERED: CALCIUM GLUCONATE 1000 MG/10 ML INJ IV ONE (09:30)
[2019-04-04] MEDS: NYSTATIN 500000 UNIT/5 ML UDCUP PO SCH ×2 (11:28→17:00)
[2019-04-04 11:36] LABS: HEPATITS B SURFACE ANTIGEN Negative (Negative)
[2019-04-04] MEDS: ACETAMINOPHEN 325 MG TABLET PO PRN (11:53)
[2019-04-04] MEDS ORDERED: NYSTATIN 500000 UNIT/5 ML UDCUP PO SCH (12:00)
[2019-04-04] MEDS: TEMAZEPAM 15 MG CAPSULE PO PRN (21:23)
[2019-04-05] MEDS: NYSTATIN 500000 UNIT/5 ML UDCUP PO SCH ×4 (00:46→17:20)
[2019-04-05] MEDS: PIPERACILLIN SODIUM/TAZOBACTAM 3.375 GM in NORMAL SALINE 100 ML IV SCH ×4 (00:46→17:20)
[2019-04-05] MEDS: METHADONE HCL 10 MG TABLET PO SCH ×3 (05:41→21:47)
[2019-04-05] MEDS: VANCOMYCIN HCL 750 MG in DEXTROSE 5%-WATER 250 ML IV SCH ×2 (05:42→13:52)
[2019-04-05 06:26] LABS: ABSOLUTE BASOPHILS # (AUTO) 0.1 10^3/uL (0.0-0.2); ABSOLUTE EOSINOPHILS # (AUTO) 0.1 10^3/uL (0.0-0.6); ABSOLUTE LYMPHOCYTES (AUTO) 2.6 10^3/uL (0.5-4.7); ABSOLUTE MONOCYTES (AUTO) 1.5 10^3/uL (0.1-1.4); BASOPHILS % (AUTO) 0.5 % (0-2); EOSINOPHILS % (AUTO) 0.8 % (0-6); HEMATOCRIT 23.2 % (36.0-47.0); LYMPHOCYTES % (AUTO) 14.7 % (13-45); MEAN CORPUSCULAR HEMOGLOBIN 28.1 pg (27.0-33.4); MEAN CORPUSCULAR HGB CONC 33.6 g/dL (32.0-36.0); MEAN CORPUSCULAR VOLUME 84 fl (80-97); MONOCYTES % (AUTO) 8.7 % (3-13); PLATELET COUNT 258 10^3/uL (150-450); RED BLOOD COUNT 2.77 10^6/uL (3.72-5.28); RED CELL DISTRIBUTION WIDTH 14.1 % (11.5-14.0); SEGMENTED NEUTROPHILS % (AUTO) 75.3 % (42-78); TOTAL CELLS COUNTED % (AUTO) 100 %; WHITE BLOOD COUNT 17.3 10^3/uL (4.0-10.5)
[2019-04-05 06:34] LABS: HEMOGLOBIN 7.8 g/dL (12.0-15.5)
[2019-04-05 06:35] LABS: BLOOD UREA NITROGEN 8 mg/dL (7-20); CALCIUM 7.5 mg/dL (8.4-10.2); CARBON DIOXIDE 27 mmol/L (22-30); CHLORIDE 104 mmol/L (98-107); GLUCOSE 83 mg/dL (75-110)
[2019-04-05 06:39] LABS: POTASSIUM 4.5 mmol/L (3.6-5.0)
[2019-04-05 06:56] LABS: ANION GAP 4 (5-19)
[2019-04-05 07:10] LABS: HEMATOCRIT 22.8 % (36.0-47.0); MEAN CORPUSCULAR HEMOGLOBIN 28.4 pg (27.0-33.4); MEAN CORPUSCULAR HGB CONC 33.9 g/dL (32.0-36.0); MEAN CORPUSCULAR VOLUME 84 fl (80-97); PLATELET COUNT 247 10^3/uL (150-450); RED BLOOD COUNT 2.71 10^6/uL (3.72-5.28); RED CELL DISTRIBUTION WIDTH 14.2 % (11.5-14.0); WHITE BLOOD COUNT 18.3 10^3/uL (4.0-10.5)
[2019-04-05 07:11] LABS: HEMOGLOBIN 7.7 g/dL (12.0-15.5)
[2019-04-05] MEDS: HYDROMORPHONE HCL INJ/PF 2 MG/ML AMPULE IV PRN ×3 (07:37→17:35)
[2019-04-05 08:10] LABS: HEPATITIS C VIRUS ANTIBODY >11.0 s/co ratio (0.0-0.9)
--- NOTE | 2019-04-05 08:13 | PDOC PROGRESS REPORT ---
Subjective Progress Note for:: 04/05/19 Subjective:: Continued pain in her coccyx April 04 2019-no complaints this a.m. April 05, 2019-improved pain in her coccyx Reason For Visit: MULTIPLE SEPTIC EMBOLI, IV DRUG ABUSE, TOBACCO Physical Exam Vital Signs: Temp Pulse Resp BP Pulse Ox 99.2 F 101 H 22 H 103/58 L 92 04/05/19 08:00 04/05/19 08:00 04/05/19 08:00 04/05/19 08:00 04/05/19 08:00 Intake & Output 04/04/19 04/05/19 04/06/19 06:59 06:59 06:59 Intake Total 1475 1700 Output Total 1000 1775 Balance 475 -75 Weight 53.5 kg 53 kg General appearance: PRESENT: no acute distress, well-developed, well-nourished Head exam: PRESENT: atraumatic, normocephalic Eye exam: PRESENT: conjunctiva pink, EOMI, PERRLA. ABSENT: scleral icterus Ear exam: PRESENT: normal external ear exam Mouth exam: PRESENT: moist, tongue midline Neck exam: ABSENT: carotid bruit, JVD, lymphadenopathy, thyromegaly Respiratory exam: PRESENT: decreased breath sounds, rhonchi, symmetrical, tachypnea, unlabored. ABSENT: rales, wheezes Cardiovascular exam: PRESENT: RRR. ABSENT: diastolic murmur, rubs, systolic murmur Pulses: PRESENT: normal dorsalis pedis pul Vascular exam: PRESENT: normal capillary refill GI/Abdominal exam: PRESENT: normal bowel sounds, soft. ABSENT: distended, guarding, mass, organolmegaly, rebound, tenderness Rectal exam: PRESENT: deferred Extremities exam: PRESENT: full ROM. ABSENT: calf tenderness, clubbing, pedal edema Neurological exam: PRESENT: alert, awake, oriented to person, oriented to place, oriented to time, oriented to situation, CN II-XII grossly intact. ABSENT: motor sensory deficit Psychiatric exam: PRESENT: appropriate affect, normal mood. ABSENT: homicidal ideation, suicidal ideation Skin exam: PRESENT: dry, intact, warm. ABSENT: cyanosis, rash Results Laboratory Results: 04/05/19 06:50 04/05/19 04:00 04/05/19 04/05/19 04/05/19 04:00 04:00 06:50 WBC 17.3 H 18.3 H RBC 2.77 L 2.71 L Hgb 7.8 L 7.7 L Hct 23.2 L 22.8 L MCV 84 84 MCH 28.1 28.4 MCHC 33.6 33.9 RDW 14.1 H 14.2 H Plt Count 258 247 Seg Neutrophils % 75.3 Sodium 134.7 L Potassium 4.5 D Chloride 104 Carbon Dioxide 27 Anion Gap 4 L BUN 8 Creatinine 0.54 Est GFR ( Amer) > 60 Glucose 83 Calcium 7.5 L Impressions: Lumbar Spine X-Ray 04/02/19 14:15 IMPRESSION: NORMAL 5 VIEW LUMBAR SPINE. Ribs w/Chest X-Ray 04/02/19 14:15 IMPRESSION: SEPTIC EMBOLI. NO RIB FRACTURES. Chest/Abdomen CTA 04/02/19 15:30 IMPRESSION: Multiple cavitary masses throughout both lungs. In the clinical setting of IV drug use, this represents septic emboli. . Metastatic disease possible though unlikely in this clinical setting. Abdomen/Pelvis CT 04/03/19 00:00 IMPRESSION: Small amount of pelvic free fluid. Coe catheter decompresses the bladder. Increasing consolidation in both lower lobes and small pleural effusions. Persistent numerous pulmonary cavitary lesions. Ankle X-Ray 04/03/19 00:00 IMPRESSION: NEGATIVE STUDY OF THE RIGHT ANKLE. NO RADIOGRAPHIC EVIDENCE OF ACUTE INJURY. Guidance Fluoroscopy 04/03/19 00:00 IMPRESSION: SUCCESSFUL PLACEMENT OF A 5 FR all LUMEN 33 CM PICC IN THE LEFT BRACHIAL VEIN. Interventional Vascular Procedure 04/03/19 00:00 IMPRESSION: SUCCESSFUL PLACEMENT OF A 5 FR all LUMEN 33 CM PICC IN THE LEFT BRACHIAL VEIN. PICC Line Insertion 04/03/19 00:00 IMPRESSION: SUCCESSFUL PLACEMENT OF A 5 FR all LUMEN 33 CM PICC IN THE LEFT BRACHIAL VEIN. Pelvis X-Ray 04/03/19 00:00 IMPRESSION: NEGATIVE STUDY OF THE PELVIS. Sacrum and Coccyx X-Ray 04/03/19 00:00 IMPRESSION: NEGATIVE STUDY OF THE SACRUM AND COCCYX. Assessment and Plan - Diagnosis (1) Septic pulmonary embolism Qualifiers: Chronicity: acute Is this a current diagnosis for this admission?: Yes Plan: April 02, 2019-at this time will admit patient inpatient. Will give patient IV vancomycin and Zosyn. Await cultures. Will obtain an echocardiogram and a PRAFUL if echocardiogram is nonconclusive. We will continue to follow patient make change plan of care as appropriate April 03, 2019-continue IV vancomycin and Zosyn at this time. Await cultures. Await echocardiogram. May change plan of care as appropriate. April 04, 2019-white count up to 16,000 today. IV vancomycin and Zosyn as running. Patient did show gram-positive cocci in tube blood cultures. Blood cultures are being repeated. Echocardiogram shows a vegetation on the tricuspid valve. We will continue current therapy April 05, 2019-IV vancomycin and Zosyn continue. Patient has 4 blood culture showing gram-positive cocci. I will repeat blood cultures tomorrow. I have ordered a ID consult. We will await sensitivities and make changes to plan of care as appropriate (2) Cavitary lesion of lung Is this a current diagnosis for this admission?: Yes Plan: April 02, 2019-patient with known IV drug abuse heroin. Patient with multiple cavitary lesions throughout both right and left lung. We will treat patient with Vanco and Zosyn at this time will obtain an echocardiogram. I am also going to check patient for HIV, hepatitis, TB with AFB and QuantiFERON testing patient will be in airborne isolation April 03, 2019-HIV negative. Hepatitis is pending. TB and AFB and QuantiFERON is pending. Will order 2 more separate AFBs. Await echocardiogram April 04, 2019-continue IV antibiotics at this time. Awaiting TB AFB and Quant iFERON studies. April 05, 2019-IV vancomycin and Zosyn continue. Awaiting TB, a AFB and QuantiFERON studies. ID consult has been ordered. (3) Hypokalemia Is this a current diagnosis for this admission?: Yes Plan: April 02, 2019-normal saline with 20 mg KCl at 100 mL an hour repeat BMP in the a.m. April 03, 2019-await a.m. labs continue saline with potassium chloride DC when potassium is normal limits. April 04, 2019-potassium level 3.1 this a.m. We will give potassium chloride 40 mEq p.o. every 4 hours x3 doses. Repeat BMP in a.m. April 05, 2019-resolved at this time. (4) Pain Is this a current diagnosis for this admission?: Yes Plan: April 02, 2019-Percocet 5/325 mg 1 p.o. every 4 hours as needed and Dilaudid 1 mg IV every 4 hours as needed. April 03, 2019-DC Percocet. Methadone 20 mg scheduled every 8 hours increase Dilaudid 1 mg every 3 hours PRN. April 04, 2019-continue methadone 20 mg scheduled every 8 hours and I increase Dilaudid to 1 mg every 2 hours as needed. April 05, 2019-patient continues on methadone 20 mg p.o. scheduled every 8 hours for pain she continues on Dilaudid 1 mg every 2 hours as needed for breakthrough pain. Tomorrow I will start weaning this pain medication back (5) Hyponatremia Is this a current diagnosis for this admission?: Yes Plan: April 02, 2019-very mild sodium 136 patient will begin normal saline we will repeat BMP in a.m. April 03, 2019-awaiting a.m. labs April 04, 2019-resolved at this time sodium 137.9. Daily BMPs April 05, 2019-sodium 134.7. Continue to follow daily BMPs. Patient continues on normal saline. (6) Tobacco abuse Is this a current diagnosis for this admission?: Yes Plan: April 02, 2019-continue to marriage and family counselor on cessation of tobacco abuse. Nicotine patches as needed April 03, 2019-continue tobacco abuse counseling nicotine patches as needed April 04, 2019-continue to marriage and family counselor on smoking cessation April 05, 2019-continue to educate on smoking cessation (7) IV drug abuse Is this a current diagnosis for this admission?: Yes Plan: April 04, 2019-continue to educate about abstaining from IV drug abuse April 05, 2019-continue education about abstaining from drug abuse. (8) Hypocalcemia Is this a current diagnosis for this admission?: Yes Plan: April 04, 2019-patient's calcium is one 6.9 corrected for albumin to 7.3. Will give 1 g IV calcium gluconate repeat calcium level in the a.m. April 05, 2019-calcium corrected for albumin at 8.5 today. Resolved repeat calcium level in a.m. (9) Anemia Is this a current diagnosis for this admission?: Yes Plan: April 04, 2019-most likely dilutional in nature. We will continue to follow daily CBCs. April 05, 2019-hemoglobin 7.7 this morning. I still believe this to be dilutional in nature. We will send off a stool for occult blood. If patient become symptomatic we will transfuse. - Time Time Spent with patient: 15-24 minutes - Inpatient Certification Based on my medical assessment, after consideration of the patient's comorbidities, presenting symptoms, or acuity I expect that the services needed warrant INPATIENT care.: Yes I certify that my determination is in accordance with my understanding of Medicare's requirements for reasonable and necessary INPATIENT services [42 CFR 412.3e].: Yes Medical Necessity: Other - IV antibiotics IV pain [id number]
[2019-04-05] MEDS ORDERED: NORMAL SALINE 10 ML SDV (AFTER EACH USE) IV PRN (09:00)
[2019-04-05] MEDS: NORMAL SALINE 10 ML SDV (SCHEDULED) IV SCH ×2 (09:11→21:46)
[2019-04-05] MEDS: DOCUSATE SODIUM 100 MG CAPSULE PO SCH ×2 (09:13→17:43)
[2019-04-05] MEDS: TEMAZEPAM 15 MG CAPSULE PO PRN (21:30)
[2019-04-06] MEDS: VANCOMYCIN HCL 750 MG in DEXTROSE 5%-WATER 250 ML IV SCH ×2 (00:57→06:14)
[2019-04-06] MEDS: PIPERACILLIN SODIUM/TAZOBACTAM 3.375 GM in NORMAL SALINE 100 ML IV SCH ×2 (00:58→06:14)
[2019-04-06] MEDS: NYSTATIN 500000 UNIT/5 ML UDCUP PO SCH ×5 (00:58→23:23)
[2019-04-06] MEDS: ACETAMINOPHEN 325 MG TABLET PO PRN (03:20)
[2019-04-06 05:40] LABS: MEAN CORPUSCULAR HEMOGLOBIN 28.7 pg (27.0-33.4); MEAN CORPUSCULAR HGB CONC 34.1 g/dL (32.0-36.0); MEAN CORPUSCULAR VOLUME 84 fl (80-97); PLATELET COUNT 295 10^3/uL (150-450); RED BLOOD COUNT 2.62 10^6/uL (3.72-5.28); RED CELL DISTRIBUTION WIDTH 14.1 % (11.5-14.0); WHITE BLOOD COUNT 17.2 10^3/uL (4.0-10.5)
[2019-04-06 05:46] LABS: HEMOGLOBIN 7.5 g/dL (12.0-15.5)
[2019-04-06 05:53] LABS: ANION GAP 7 (5-19); BLOOD UREA NITROGEN 7 mg/dL (7-20); CALCIUM 7.3 mg/dL (8.4-10.2); CARBON DIOXIDE 27 mmol/L (22-30); CHLORIDE 100 mmol/L (98-107); GLUCOSE 83 mg/dL (75-110); POTASSIUM 3.8 mmol/L (3.6-5.0)
[2019-04-06] MEDS: METHADONE HCL 10 MG TABLET PO SCH ×3 (06:12→21:22)
[2019-04-06] MEDS: DOCUSATE SODIUM 100 MG CAPSULE PO SCH ×2 (09:04→17:02)
[2019-04-06] MEDS: HYDROMORPHONE HCL INJ/PF 2 MG/ML AMPULE IV PRN ×2 (09:04→20:23)
[2019-04-06] MEDS: NORMAL SALINE 10 ML SDV (SCHEDULED) IV SCH ×2 (10:40→21:24)
[2019-04-06] MEDS: NAFCILLIN SODIUM 2 GM in DEXTROSE 5%-WATER 100 ML IV SCH ×4 (10:40→21:21)
[2019-04-06] MEDS: LORAZEPAM INJ 2 MG/1 ML VIAL IV PRN (11:43)
[2019-04-06] MEDS ORDERED: CALCIUM GLUCONATE 1,000 MG in DEXTROSE 5%-WATER 50 ML IV ONE (15:49)
--- NOTE | 2019-04-06 15:59 | PDOC PROGRESS REPORT ---
Subjective Progress Note for:: 04/06/19 Subjective:: Continued pain in her coccyx April 04 2019-no complaints this a.m. April 05, 2019-improved pain in her coccyx April 06, 2019-pain in coccyx has improved Reason For Visit: MULTIPLE SEPTIC EMBOLI, IV DRUG ABUSE, TOBACCO Physical Exam Vital Signs: Temp Pulse Resp BP Pulse Ox 98.9 F 97 22 H 140/81 H 97 04/06/19 11:41 04/06/19 14:00 04/06/19 11:41 04/06/19 11:41 04/06/19 11:41 Intake & Output 04/05/19 04/06/19 04/07/19 06:59 06:59 06:59 Intake Total 1800 2190 590 Output Total 1775 3150 900 Balance 25 -960 -310 Weight 53 kg 57 kg General appearance: PRESENT: no acute distress, well-developed, well-nourished Neck exam: ABSENT: carotid bruit, JVD, lymphadenopathy, thyromegaly Respiratory exam: PRESENT: decreased breath sounds, rhonchi, tachypnea Cardiovascular exam: PRESENT: RRR. ABSENT: diastolic murmur, rubs, systolic murmur Pulses: PRESENT: normal dorsalis pedis pul GI/Abdominal exam: PRESENT: normal bowel sounds, soft. ABSENT: distended, guarding, mass, organolmegaly, rebound, tenderness Extremities exam: PRESENT: full ROM. ABSENT: calf tenderness, clubbing, pedal edema Neurological exam: PRESENT: alert, awake, oriented to person, oriented to place, oriented to time, oriented to situation, CN II-XII grossly intact. ABSENT: motor sensory deficit Psychiatric exam: PRESENT: appropriate affect, normal mood. ABSENT: homicidal ideation, suicidal ideation Skin exam: PRESENT: dry, intact, warm. ABSENT: cyanosis, rash Adult Front & Back Image: 1 - PICC line Results Laboratory Results: 04/06/19 05:00 04/06/19 05:00 04/06/19 04/06/19 05:00 05:00 WBC 17.2 H RBC 2.62 L Hgb 7.5 L Hct 22.0 L MCV 84 MCH 28.7 MCHC 34.1 RDW 14.1 H Plt Count 295 Sodium 133.7 L Potassium 3.8 Chloride 100 Carbon Dioxide 27 Anion Gap 7 BUN 7 Creatinine 0.60 Est GFR ( Amer) > 60 Glucose 83 Calcium 7.3 L 04/02/19 16:00 Blood Blood Culture - Final Staphylococcus Aureus 04/02/19 17:16 Blood Blood Culture - Final Staphylococcus Aureus Impressions: Lumbar Spine X-Ray 04/02/19 14:15 IMPRESSION: NORMAL 5 VIEW LUMBAR SPINE. Ribs w/Chest X-Ray 04/02/19 14:15 IMPRESSION: SEPTIC EMBOLI. NO RIB FRACTURES. Chest/Abdomen CTA 04/02/19 15:30 IMPRESSION: Multiple cavitary masses throughout both lungs. In the clinical setting of IV drug use, this represents septic emboli. . Metastatic disease possible though unlikely in this clinical setting. Abdomen/Pelvis CT 04/03/19 00:00 IMPRESSION: Small amount of pelvic free fluid. Coe catheter decompresses the bladder. Increasing consolidation in both lower lobes and small pleural effusions. Persistent numerous pulmonary cavitary lesions. Ankle X-Ray 04/03/19 00:00 IMPRESSION: NEGATIVE STUDY OF THE RIGHT ANKLE. NO RADIOGRAPHIC EVIDENCE OF ACUTE INJURY. Guidance Fluoroscopy 04/03/19 00:00 IMPRESSION: SUCCESSFUL PLACEMENT OF A 5 FR all LUMEN 33 CM PICC IN THE LEFT BRACHIAL VEIN. Interventional Vascular Procedure 04/03/19 00:00 IMPRESSION: SUCCESSFUL PLACEMENT OF A 5 FR all LUMEN 33 CM PICC IN THE LEFT BRACHIAL VEIN. PICC Line Insertion 04/03/19 00:00 IMPRESSION: SUCCESSFUL PLACEMENT OF A 5 FR all LUMEN 33 CM PICC IN THE LEFT BRACHIAL VEIN. Pelvis X-Ray 04/03/19 00:00 IMPRESSION: NEGATIVE STUDY OF THE PELVIS. Sacrum and Coccyx X-Ray 04/03/19 00:00 IMPRESSION: NEGATIVE STUDY OF THE SACRUM AND COCCYX. Assessment and Plan - Diagnosis (1) Septic pulmonary embolism Qualifiers: Chronicity: acute Is this a current diagnosis for this admission?: Yes Plan: April 02, 2019-at this time will admit patient inpatient. Will give patient IV vancomycin and Zosyn. Await cultures. Will obtain an echocardiogram and a PRAFUL if echocardiogram is nonconclusive. We will continue to follow patient make change plan of care as appropriate April 03, 2019-continue IV vancomycin and Zosyn at this time. Await cultures. Await echocardiogram. May change plan of care as appropriate. April 04, 2019-white count up to 16,000 today. IV vancomycin and Zosyn as running. Patient did show gram-positive cocci in tube blood cultures. Blood cultures are being repeated. Echocardiogram shows a vegetation on the tricuspid valve. We will continue current therapy April 05, 2019-IV vancomycin and Zosyn continue. Patient has 4 blood culture showing gram-positive cocci. I will repeat blood cultures tomorrow. I have ordered a ID consult. We will await sensitivities and make changes to plan of care as appropriate April 06, 2019-IV vancomycin and Zosyn discontinued. Patient placed on nafcillin 2 g IV every 4 hours. Repeat blood cultures today. ID has been consulted. Patient is also been accepted at [facility] for further evaluation and treatment. We are awaiting a bed now. (2) Cavitary lesion of lung Is this a current diagnosis for this admission?: Yes (3) Hypokalemia Is this a current diagnosis for this admission?: Yes Plan: April 02, 2019-normal saline with 20 mg KCl at 100 mL an hour repeat BMP in the a.m. April 03, 2019-await a.m. labs continue saline with potassium chloride DC when potassium is normal limits. April 04, 2019-potassium level 3.1 this a.m. We will give potassium chloride 40 mEq p.o. every 4 hours x3 doses. Repeat BMP in a.m. April 05, 2019-resolved at this time. April 06, 2019-resolved (4) Pain Is this a current diagnosis for this admission?: Yes Plan: April 02, 2019-Percocet 5/325 mg 1 p.o. every 4 hours as needed and Dilaudid 1 mg IV every 4 hours as needed. April 03, 2019-DC Percocet. Methadone 20 mg scheduled every 8 hours increase Dilaudid 1 mg every 3 hours PRN. April 04, 2019-continue methadone 20 mg scheduled every 8 hours and I increase Dilaudid to 1 mg every 2 hours as needed. April 05, 2019-patient continues on methadone 20 mg p.o. scheduled every 8 hours for pain she continues on Dilaudid 1 mg every 2 hours as needed for breakthrough pain. Tomorrow I will start weaning this pain medication back April 06, 2019-pain improved. I will continue methadone 20 mill grams p.o. every 8 hours I will decrease Dilaudid to 1 mg every 4 hours as needed. (5) Hyponatremia Is this a current diagnosis for this admission?: Yes Plan: April 02, 2019-very mild sodium 136 patient will begin normal saline we will repeat BMP in a.m. April 03, 2019-awaiting a.m. labs April 04, 2019-resolved at this time sodium 137.9. Daily BMPs April 05, 2019-sodium 134.7. Continue to follow daily BMPs. Patient continues on normal saline. April 06, 2019-continues but mild continue to follow daily renal panels. (6) Tobacco abuse Is this a current diagnosis for this admission?: Yes Plan: April 02, 2019-continue to intellectual property counsel on cessation of tobacco abuse. Nicotine patches as needed April 03, 2019-continue tobacco abuse counseling nicotine patches as needed April 04, 2019-continue to intellectual property counsel on smoking cessation April 05, 2019-continue to educate on smoking cessation April 06, 2019 continue education on smoking cessation (7) IV drug abuse Is this a current diagnosis for this admission?: Yes Plan: April 04, 2019-continue to educate about abstaining from IV drug abuse April 05, 2019-continue education about abstaining from drug abuse. April 06, 2019-continue education about abstaining from drug abuse (8) Hypocalcemia Is this a current diagnosis for this admission?: Yes Plan: April 04, 2019-patient's calcium is one 6.9 corrected for albumin to 7.3. Will give 1 g IV calcium gluconate repeat calcium level in the a.m. April 05, 2019-calcium corrected for albumin at 8.5 today. Resolved repeat calcium level in a.m. April 06, 2019-calcium corrected for albumin is 8.34. Repeat calcium level in a.m. (9) Anemia Is this a current diagnosis for this admission?: Yes Plan: April 04, 2019-most likely dilutional in nature. We will continue to follow daily CBCs. April 05, 2019-hemoglobin 7.7 this morning. I still believe this to be dilutional in nature. We will send off a stool for occult blood. If patient become symptomatic we will transfuse. April 06, 2019-hemoglobin 7.5 today continues asymptomatic. Most likely dilutional in nature. Awaiting stool for occult blood (10) Hepatitis C Is this a current diagnosis for this admission?: Yes Plan: April 06, 2019-patient's hepatitis panel came back with showings of hepatitis C chronic. I have educated patient when she has overcome this acute disease to go to a local community clinic and get treatment for her hepatitis C. - Time Time Spent with patient: 15-24 minutes - Inpatient Certification Based on my medical assessment, after consideration of the patient's comorbidities, presenting symptoms, or acuity I expect that the services needed warrant INPATIENT care.: Yes I certify that my determination is in accordance with my understanding of Medicare's requirements for reasonable and necessary INPATIENT services [42 CFR 412.3e].: Yes Medical Necessity: Other - IV antibiotics, further cardiac work-up.
[2019-04-06] MEDS ORDERED: CALCIUM GLUCONATE 1000 MG/10 ML INJ IV ONE (17:00)
[2019-04-06] MEDS ORDERED: FUROSEMIDE INJ/PF 40 MG/4 ML SDV IV ONE (17:00)
--- NOTE | 2019-04-06 18:08 | Progress Note ---
Provider Note Provider Note: 04/06/2019 after checking patient later in the day she had slight rales in the bases no more shortness of breath and she is been having since she was admitted. I DC'd her IV fluids at that time and gave her 40 mg of IV Lasix. We will continue to follow
[2019-04-06] MEDS: TEMAZEPAM 15 MG CAPSULE PO PRN (23:28)
[2019-04-07] MEDS: NAFCILLIN SODIUM 2 GM in DEXTROSE 5%-WATER 100 ML IV SCH ×6 (02:20→21:48)
[2019-04-07] MEDS: NYSTATIN 500000 UNIT/5 ML UDCUP PO SCH ×4 (05:48→23:41)
[2019-04-07] MEDS: METHADONE HCL 10 MG TABLET PO SCH ×3 (05:50→21:48)
[2019-04-07 06:19] LABS: HEMATOCRIT 23.9 % (36.0-47.0); HEMOGLOBIN 8.1 g/dL (12.0-15.5); MEAN CORPUSCULAR HEMOGLOBIN 28.1 pg (27.0-33.4); MEAN CORPUSCULAR HGB CONC 33.7 g/dL (32.0-36.0); MEAN CORPUSCULAR VOLUME 84 fl (80-97); PLATELET COUNT 393 10^3/uL (150-450); RED BLOOD COUNT 2.87 10^6/uL (3.72-5.28); WHITE BLOOD COUNT 17.1 10^3/uL (4.0-10.5)
[2019-04-07 06:50] LABS: BLOOD UREA NITROGEN 7 mg/dL (7-20); CALCIUM 7.4 mg/dL (8.4-10.2); GLUCOSE 84 mg/dL (75-110); POTASSIUM 3.9 mmol/L (3.6-5.0)
[2019-04-07 06:55] LABS: CARBON DIOXIDE 34 mmol/L (22-30); CHLORIDE 95 mmol/L (98-107)
[2019-04-07 07:03] LABS: ANION GAP 4 (5-19)
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
[2019-04-07] MEDS: NORMAL SALINE 10 ML SDV (SCHEDULED) IV SCH ×2 (09:18→21:49)
[2019-04-07] MEDS: DOCUSATE SODIUM 100 MG CAPSULE PO SCH ×2 (11:04→17:29)
[2019-04-07] MEDS: HYDROMORPHONE HCL INJ/PF 2 MG/ML AMPULE IV PRN ×2 (12:35→19:04)
--- NOTE | 2019-04-07 15:26 | PDOC TRANSFER SUMMARY ---
General Admission Date/PCP: 04/02/19 18:04 Admission Date: 04/07/19 Accepting Facility: [facility] Accepting Physician: Dr. Genesis Davis Resuscitation Status: Full Code - Transfer Diagnosis (1) Endocarditis Is this a current diagnosis for this admission?: Yes Diagnosis Summary: Transthoracic echocardiogram revealed a freely mobile, moderate size, egetation to the tricuspid valve with associated severe tricuspid regurgitation. Blood cultures reveal MRSA. Patient does admit to IV drug use. Infectious disease has been consulted; recommends continued nafcillin. Short course therapy (2 weeks from date of blood culture clearance) appropriate for uncomplicated right-sided hug[place] valve MSSA endocarditis in IVDU that can be treated with IV antistaphylococcal beta-lactams of choice. Recommends PRAFUL to rule out presence of concommitant left sided lesions. The previous provider has contacted [facility]; patient has been accepted for transfer with attending Dr. Liz Davis. (2) Bacteremia Is this a current diagnosis for this admission?: Yes Diagnosis Summary: Secondary to #1. PICC line is removed today due to continued bacteremia. Have obtained repeat blood cultures today (04/07/2019); may reinsert pick once clear at 72 hours. Continue IV nafcillin as above. (3) Septic pulmonary embolism Is this a current diagnosis for this admission?: Yes Diagnosis Summary: Secondary to #1. Patient continues to require supplemental oxygen at 2 L/min. She does continue to have pleuritic chest pain. Otherwise, evaluation and management as above. (4) Cavitary lesion of lung Is this a current diagnosis for this admission?: Yes Diagnosis Summary: Secondary to septic emboli related to MRSA endocarditis. Management as above. The patient was empirically ruled out for tuberculosis; initial AFB is negative, repeats #2 and 3 are pending. (5) Hepatitis C Is this a current diagnosis for this admission?: Yes Diagnosis Summary: New diagnosis of hepatitis C. Patient has been educated on the importance of IV drug and alcohol cessation. She is advised to follow-up with primary care provider following discharge for outpatient referral to precipitator operator and/or infectious disease for further evaluation and treatment. (6) Hypocalcemia Is this a current diagnosis for this admission?: Yes Diagnosis Summary: Corrected calcium for albumin is 8.4. Continue multivitamin and calcium supplementation. Routine monitoring. (7) Hypokalemia Is this a current diagnosis for this admission?: Yes Diagnosis Summary: Replete. (8) Hyponatremia Is this a current diagnosis for this admission?: Yes Diagnosis Summary: Mild hyponatremia, 133, not clinically significant. Continue to monitor with daily chemistries. (9) Pain Is this a current diagnosis for this admission?: Yes Diagnosis Summary: Continue methadone 20 mg every 8 hours with Dilaudid will milligram every 4 hours breakthrough pain. (10) Anemia Is this a current diagnosis for this admission?: Yes Diagnosis Summary: Stable at 8.1. Continue multivitamin and ferrous sulfate supplementation. (11) IV drug abuse Is this a current diagnosis for this admission?: Yes Diagnosis Summary: UDS on admission positive for opiates, amphetamines, and THC. Patient does endorse IV drug use. Cessation strongly encouraged; minimally receptive at this time. Patient would benefit from mental health and substance abuse counseling services. (12) Tobacco abuse Is this a current diagnosis for this admission?: Yes Diagnosis Summary: Smoking cessation encouraged, nicotine or placement therapies provided. - Transfer Medications Home Medications: No Home Medications 04/03/19 Transfer Medications: Current Medications Acetaminophen (Tylenol 325 Mg Tablet) 650 mg PO Q6HP PRN PRN Reason: FEVER Stop: 05/03/19 22:24 Last Admin: 04/06/19 03:20 Dose: 650 mg Documented by: Docusate Sodium (Colace 100 Mg Capsule) 100 mg PO BID [facility] Stop: 05/04/19 09:59 Last Admin: 04/07/19 11:04 Dose: Not Given Documented by: Heparin Sodium (Porcine) (Heparin Flush 10 Unit/Ml 5 Ml Disp.Syrg) 30 unit IV Q12 [facility]ULU Stop: 05/05/19 09:59 Last Admin: 04/07/19 09:18 Dose: 30 unit Documented by: Heparin Sodium (Porcine) (Heparin Flush 10 Unit/Ml 5 Ml Disp.Syrg) 30 unit IV .AFTER EACH USE PRN Stop: 05/05/19 08:59 Last Admin: 04/06/19 17:03 Dose: 30 unit Documented by: Hydromorphone HCl (Dilaudid Inj/Pf 2 Mg/Ml Ampule) 1 mg IV Q4HP PRN PRN Reason: FOR PAIN Stop: 04/13/19 15:52 Last Admin: 04/07/19 12:35 Dose: 1 mg Documented by: Nafcillin Sodium 2 gm/ (Dextrose) 100 mls @ 200 mls/hr IV Q4 LULU Stop: 04/13/19 09:59 Last Admin: 04/07/19 13:04 Dose: 200 mls/hr Documented by: Lorazepam (Ativan Inj 2 Mg/1 Ml Vial) 1 mg IV Q4HP PRN PRN Reason: ANXIETY/AGITATION Stop: 04/13/19 11:06 Last Admin: 04/06/19 11:43 Dose: 1 mg Documented by: Methadone HCl (Dolophine 10 Mg Tablet) 20 mg PO Q8 LULU Stop: 04/10/19 08:59 Last Admin: 04/07/19 13:03 Dose: 20 mg Documented by: Nystatin (Mycostatin 500,000 Unit/5 Ml Susp Udcup) 100,000 unit PO Q6 LULU Stop: 04/11/19 11:59 Last Admin: 04/07/19 12:35 Dose: 100,000 unit Documented by: Ondansetron HCl (Zofran Inj/Pf 4 Mg/2 Ml Sdv) 4 mg IV Q8HP PRN PRN Reason: FOR NAUSEA/VOMITING Stop: 05/02/19 18:09 Sodium Chloride (Saline Flush 2.5 Ml Monoject Prefil Syrin) 2.5 ml IV Q8 LULU Stop: 05/02/19 21:59 Last Admin: 04/07/19 13:04 Dose: 2.5 ml Documented by: Sodium Chloride (Nacl 0.9% Inj/Pf 10 Ml Sdv) 10 ml IV Q12 LULU Stop: 05/05/19 09:59 Last Admin: 04/07/19 09:18 Dose: 10 ml Documented by: Sodium Chloride (Nacl 0.9% Inj/Pf 10 Ml Sdv) 10 ml IV .AFTER EACH USE PRN Stop: 05/05/19 08:59 Temazepam (Restoril 15 Mg Capsule) 15 mg PO HSP PRN PRN Reason: SLEEP OR INSOMNIA Stop: 04/09/19 18:09 Last Admin: 04/06/19 23:28 Dose: 15 mg Documented by: - Allergies Allergies/Adverse Reactions: acetaminophen [From Tylenol] Allergy (Verified 04/02/19 13:54) tramadol HCl [From Ultram] Allergy (Verified 04/02/19 13:54) - Diet/Activity Discharge Diet: Regular Discharge Activity: Activity As Tolerated Physical Exam Vital Signs: Temp Pulse Resp BP Pulse Ox 101.6 F H 102 H 16 114/63 89 L 04/07/19 07:12 04/07/19 07:12 04/07/19 07:12 04/07/19 07:12 04/07/19 07:12 Intake & Output 04/06/19 04/07/19 04/08/19 06:59 06:59 06:59 Intake Total 2190 1010 120 Output Total 3150 5760 700 Balance -960 -4350 -580 Weight 57 kg 52.4 kg General appearance: PRESENT: no acute distress, disheveled, well-developed, well-nourished Head exam: PRESENT: atraumatic, normocephalic Eye exam: PRESENT: conjunctiva pink, EOMI, PERRLA. ABSENT: scleral icterus Ear exam: PRESENT: normal external ear exam Mouth exam: PRESENT: moist, tongue midline Neck exam: ABSENT: carotid bruit, JVD, lymphadenopathy, thyromegaly Respiratory exam: PRESENT: clear to auscultation michelle, symmetrical, unlabored. ABSENT: rales, rhonchi, wheezes Cardiovascular exam: PRESENT: RRR, systolic murmur. ABSENT: diastolic murmur, rubs Pulses: PRESENT: normal dorsalis pedis pul Vascular exam: PRESENT: normal capillary refill GI/Abdominal exam: PRESENT: normal bowel sounds, soft. ABSENT: distended, guarding, mass, organolmegaly, rebound, tenderness Rectal exam: PRESENT: deferred Extremities exam: PRESENT: full ROM. ABSENT: calf tenderness, clubbing, pedal edema Neurological exam: PRESENT: alert, awake, oriented to person, oriented to place, oriented to time, oriented to situation, CN II-XII grossly intact. ABSENT: motor sensory deficit Psychiatric exam: PRESENT: appropriate affect, normal mood. ABSENT: homicidal ideation, suicidal ideation Skin exam: PRESENT: dry, intact, warm. ABSENT: cyanosis, rash Results Laboratory Results: 04/07/19 05:50 04/07/19 05:50 04/07/19 04/07/19 05:50 05:50 WBC 17.1 H RBC 2.87 L Hgb 8.1 L Hct 23.9 L MCV 84 MCH 28.1 MCHC 33.7 RDW 14.0 Plt Count 393 Sodium 133.0 L Potassium 3.9 Chloride 95 L Carbon Dioxide 34 H Anion Gap 4 L BUN 7 Creatinine 0.51 L Est GFR ( Amer) > 60 Glucose 84 Calcium 7.4 L 04/03/19 18:11 Blood Blood Culture - Final Staphylococcus Aureus 04/03/19 19:10 Blood Blood Culture - Final Staphylococcus Aureus Impressions: Lumbar Spine X-Ray 04/02/19 14:15 IMPRESSION: NORMAL 5 VIEW LUMBAR SPINE. Ribs w/Chest X-Ray 04/02/19 14:15 IMPRESSION: SEPTIC EMBOLI. NO RIB FRACTURES. Chest/Abdomen CTA 04/02/19 15:30 IMPRESSION: Multiple cavitary masses throughout both lungs. In the clinical setting of IV drug use, this represents septic emboli. . Metastatic disease possible though unlikely in this clinical setting. Abdomen/Pelvis CT 04/03/19 00:00 IMPRESSION: Small amount of pelvic free fluid. Coe catheter decompresses the bladder. Increasing consolidation in both lower lobes and small pleural effusions. Persistent numerous pulmonary cavitary lesions. Ankle X-Ray 04/03/19 00:00 IMPRESSION: NEGATIVE STUDY OF THE RIGHT ANKLE. NO RADIOGRAPHIC EVIDENCE OF ACUTE INJURY. Guidance Fluoroscopy 04/03/19 00:00 IMPRESSION: SUCCESSFUL PLACEMENT OF A 5 FR all LUMEN 33 CM PICC IN THE LEFT BRACHIAL VEIN. Interventional Vascular Procedure 04/03/19 00:00 IMPRESSION: SUCCESSFUL PLACEMENT OF A 5 FR all LUMEN 33 CM PICC IN THE LEFT BRACHIAL VEIN. PICC Line Insertion 04/03/19 00:00 IMPRESSION: SUCCESSFUL PLACEMENT OF A 5 FR all LUMEN 33 CM PICC IN THE LEFT BRACHIAL VEIN. Pelvis X-Ray 04/03/19 00:00 IMPRESSION: NEGATIVE STUDY OF THE PELVIS. Sacrum and Coccyx X-Ray 04/03/19 00:00 IMPRESSION: NEGATIVE STUDY OF THE SACRUM AND COCCYX. Plan Discharge Plan: Transfer to [facility] for further evaluation and management of tricuspid valve vegetation related to MRSA bacteremia. Time Spent: Greater than 30 Minutes
[2019-04-07] MEDS: CALCIUM CARBONATE 250 MG/VITAMIN D3 125 UNIT TABLET PO SCH (17:29)
[2019-04-07] MEDS: ACETAMINOPHEN 325 MG TABLET PO PRN (18:40)
[2019-04-07] MEDS: LORAZEPAM INJ 2 MG/1 ML VIAL IV PRN (19:04)
[2019-04-07] MEDS: TEMAZEPAM 15 MG CAPSULE PO PRN (21:48)
[2019-04-08] MEDS: NAFCILLIN SODIUM 2 GM in DEXTROSE 5%-WATER 100 ML IV SCH ×6 (02:20→21:04)
[2019-04-08] MEDS: ACETAMINOPHEN 325 MG TABLET PO PRN ×2 (04:20→17:07)
[2019-04-08 05:20] LABS: HEMATOCRIT 29.9 % (36.0-47.0); HEMOGLOBIN 10.1 g/dL (12.0-15.5); MEAN CORPUSCULAR HEMOGLOBIN 28.6 pg (27.0-33.4); MEAN CORPUSCULAR HGB CONC 33.8 g/dL (32.0-36.0); MEAN CORPUSCULAR VOLUME 85 fl (80-97); RED BLOOD COUNT 3.53 10^6/uL (3.72-5.28); RED CELL DISTRIBUTION WIDTH 14.5 % (11.5-14.0); WHITE BLOOD COUNT 18.9 10^3/uL (4.0-10.5)
[2019-04-08 05:52] LABS: PLATELET COUNT 381 10^3/uL (150-450)
[2019-04-08] MEDS: METHADONE HCL 10 MG TABLET PO SCH ×4 (06:24→23:47)
[2019-04-08] MEDS: NYSTATIN 500000 UNIT/5 ML UDCUP PO SCH ×4 (06:24→23:48)
[2019-04-08 07:33] LABS: ALBUMIN 2.5 g/dL (3.5-5.0); ALKALINE PHOSPHATASE 230 U/L (38-126); ANION GAP 12 (5-19); ASPARTATE AMINO TRANSFERASE 45 U/L (14-36); BILIRUBIN,DIRECT 1.3 mg/dL (0.0-0.4); BILIRUBIN,TOTAL 1.7 mg/dL (0.2-1.3); BLOOD UREA NITROGEN 9 mg/dL (7-20); CALCIUM 7.9 mg/dL (8.4-10.2); CARBON DIOXIDE 29 mmol/L (22-30); CHLORIDE 96 mmol/L (98-107); GLUCOSE 72 mg/dL (75-110); POTASSIUM 4.3 mmol/L (3.6-5.0); TOTAL PROTEIN 6.9 g/dL (6.3-8.2)
[2019-04-08] MEDS: HYDROMORPHONE HCL INJ/PF 2 MG/ML AMPULE IV PRN ×2 (08:22→16:01)
[2019-04-08] MEDS: FERROUS SULFATE 325 MG TABLET PO SCH (09:45)
[2019-04-08] MEDS: CALCIUM CARBONATE 250 MG/VITAMIN D3 125 UNIT TABLET PO SCH ×2 (09:45→18:01)
[2019-04-08] MEDS: MULTIVITAMIN TABLET PO SCH (09:46)
[2019-04-08] MEDS: DOCUSATE SODIUM 100 MG CAPSULE PO SCH ×2 (09:50→18:18)
[2019-04-08] MEDS: NORMAL SALINE 10 ML SDV (SCHEDULED) IV SCH ×2 (11:00→21:04)
[2019-04-08] MEDS ORDERED: NORMAL SALINE 1000 ML 1,000 ML IV ONE (18:15)
--- NOTE | 2019-04-08 19:35 | PDOC PROGRESS REPORT ---
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 Seen on rounds eating her lunch. She is sitting up in bed, on room air. She is conversational, speaks full sentences, reports improved chest discomfort today though with continued left hip pain. Otherwise, she denies fever, chills, palpitations, dyspnea, orthopnea, abdominal pain, nausea and vomiting. She has no other concerns today. This afternoon nursing reports fever 103.9 with hypotension. Reason For Visit: MULTIPLE SEPTIC EMBOLI, IV DRUG ABUSE, TOBACCO Physical Exam Vital Signs: Temp Pulse Resp BP Pulse Ox 103.9 F H 121 H 20 92/49 L 92 04/08/19 17:03 04/08/19 17:03 04/08/19 17:03 04/08/19 17:03 04/08/19 17:03 Intake & Output 04/07/19 04/08/19 04/09/19 06:59 06:59 06:59 Intake Total 1010 540 360 Output Total 5750 700 Balance -4740 -160 360 Weight 52.4 kg 51.8 kg General appearance: PRESENT: no acute distress, well-developed, well-nourished Head exam: PRESENT: atraumatic, normocephalic Eye exam: PRESENT: conjunctiva pink, EOMI, PERRLA. ABSENT: scleral icterus Ear exam: PRESENT: normal external ear exam Mouth exam: PRESENT: moist, tongue midline Neck exam: ABSENT: carotid bruit, JVD, lymphadenopathy, thyromegaly Respiratory exam: PRESENT: clear to auscultation michelle, symmetrical, unlabored. ABSENT: rales, rhonchi, wheezes Cardiovascular exam: PRESENT: RRR, +S1, +S2, systolic murmur. ABSENT: diastolic murmur, rubs Pulses: PRESENT: normal dorsalis pedis pul Vascular exam: PRESENT: normal capillary refill GI/Abdominal exam: PRESENT: normal bowel sounds, soft. ABSENT: distended, guarding, mass, organolmegaly, rebound, tenderness Rectal exam: PRESENT: deferred Extremities exam: PRESENT: full ROM. ABSENT: calf tenderness, clubbing, pedal edema Neurological exam: PRESENT: alert, awake, oriented to person, oriented to place, oriented to time, oriented to situation, CN II-XII grossly intact. ABSENT: motor sensory deficit Psychiatric exam: PRESENT: appropriate affect, normal mood. ABSENT: homicidal ideation, suicidal ideation Skin exam: PRESENT: dry, intact, warm. ABSENT: cyanosis, rash Results Laboratory Results: 04/08/19 04:12 04/08/19 05:50 04/08/19 04/08/19 04/08/19 04:12 05:50 17:56 WBC 18.9 H RBC 3.53 L Hgb 10.1 L Hct 29.9 L MCV 85 MCH 28.6 MCHC 33.8 RDW 14.5 H Plt Count 381 Sodium 137.3 Potassium 4.3 Chloride 96 L Carbon Dioxide 29 Anion Gap 12 BUN 9 Creatinine 0.54 Est GFR ( Amer) > 60 Glucose 72 L Lactic Acid 3.0 H Calcium 7.9 L Total Bilirubin 1.7 H AST 45 H Alkaline Phosphatase 230 H Total Protein 6.9 Albumin 2.5 L 04/06/19 11:50 Sputum Gram Stain - Final 04/06/19 11:50 Sputum Sputum Culture - Final Staphylococcus Aureus C.albicans/C.dubliniensis Normal Rehana Absent 04/04/19 06:54 Sputum AFB Smear Concentration - Final 04/04/19 06:54 Sputum Acid Fast Bacilli Smear - Final 04/06/19 11:50 Sputum AFB Smear Concentration - Final 04/06/19 11:50 Sputum Acid Fast Bacilli Smear - Final Impressions: Lumbar Spine X-Ray 04/02/19 14:15 IMPRESSION: NORMAL 5 VIEW LUMBAR SPINE. Ribs w/Chest X-Ray 04/02/19 14:15 IMPRESSION: SEPTIC EMBOLI. NO RIB FRACTURES. Chest/Abdomen CTA 04/02/19 15:30 IMPRESSION: Multiple cavitary masses throughout both lungs. In the clinical setting of IV drug use, this represents septic emboli. . Metastatic disease possible though unlikely in this clinical setting. Abdomen/Pelvis CT 04/03/19 00:00 IMPRESSION: Small amount of pelvic free fluid. Coe catheter decompresses the bladder. Increasing consolidation in both lower lobes and small pleural effusions. Persistent numerous pulmonary cavitary lesions. Ankle X-Ray 04/03/19 00:00 IMPRESSION: NEGATIVE STUDY OF THE RIGHT ANKLE. NO RADIOGRAPHIC EVIDENCE OF ACUTE INJURY. Guidance Fluoroscopy 04/03/19 00:00 IMPRESSION: SUCCESSFUL PLACEMENT OF A 5 FR all LUMEN 33 CM PICC IN THE LEFT BRA CHIAL VEIN. Interventional Vascular Procedure 04/03/19 00:00 IMPRESSION: SUCCESSFUL PLACEMENT OF A 5 FR all LUMEN 33 CM PICC IN THE LEFT BRACHIAL VEIN. PICC Line Insertion 04/03/19 00:00 IMPRESSION: SUCCESSFUL PLACEMENT OF A 5 FR all LUMEN 33 CM PICC IN THE LEFT BRACHIAL VEIN. Pelvis X-Ray 04/03/19 00:00 IMPRESSION: NEGATIVE STUDY OF THE PELVIS. Sacrum and Coccyx X-Ray 04/03/19 00:00 IMPRESSION: NEGATIVE STUDY OF THE SACRUM AND COCCYX. Assessment and Plan - Diagnosis (1) Endocarditis Is this a current diagnosis for this admission?: Yes Plan: Transthoracic echocardiogram revealed a freely mobile, moderate size, egetation to the tricuspid valve with associated severe tricuspid regurgitation. Blood cultures reveal MRSA. Patient does admit to IV drug use. Continues to have daily fevers of 101 - 103. BP is soft, though asymptmatic with systolic BP 90-110. Lactic acid 3.0. Repeat pending. Infectious disease has been consulted; recommends continued nafcillin. Short course therapy (2 weeks from date of blood culture clearance) appropriate for uncomplicated right-sided [place] valve MSSA endocarditis in IVDU that can be treated with IV antistaphylococcal beta-lactams of choice. Recommends PRAFUL to rule out presence of concommitant left sided lesions. The previous provider has contacted [facility]; patient has been accepted for transfer with attending Dr. iLz Davis. (2) Bacteremia Is this a current diagnosis for this admission?: Yes Plan: Secondary to #1. PICC line is removed due to continued bacteremia. Repeat blood cultures (04/06/2019) negative at 48 hrs; may reinsert PICC when negative at 72. Continue IV nafcillin as above. (3) Septic pulmonary embolism Qualifiers: Chronicity: acute Is this a current diagnosis for this admission?: Yes Plan: Secondary to #1. Patient continues to require supplemental oxygen at 2 L/min. She does continue to have pleuritic chest pain though improved today. Otherwise, evaluation and management as above. (4) Cavitary lesion of lung Is this a current diagnosis for this admission?: Yes Plan: Secondary to septic emboli related to MRSA endocarditis. Management as above. Rled out for tuberculosis; now off precautions. (5) Hepatitis C Is this a current diagnosis for this admission?: Yes Plan: New diagnosis of hepatitis C. Patient has been educated on the importance of IV drug and alcohol cessation. She is advised to follow-up with primary care provider following discharge for outpatient referral to dragsaw operator and/or infectious disease for further evaluation and treatment. (6) Hypocalcemia Is this a current diagnosis for this admission?: Yes Plan: Corrected calcium for albumin is acceptable. Continue multivitamin and calcium supplementation. Routine monitoring. (7) Hypokalemia Is this a current diagnosis for this admission?: Yes Plan: Replete. (8) Hyponatremia Is this a current diagnosis for this admission?: Yes Plan: Resolved. Continue to monitor with daily chemistries. (9) Pain Is this a current diagnosis for this admission?: Yes Plan: Continue methadone 20 mg every 8 hours with Dilaudid will milligram every 4 hours breakthrough pain (10) Anemia Is this a current diagnosis for this admission?: Yes Plan: Stable at 101. Continue multivitamin and ferrous sulfate supplementation. (11) IV drug abuse Is this a current diagnosis for this admission?: Yes Plan: UDS on admission positive for opiates, amphetamines, and THC. Patient does endorse IV drug use. Cessation strongly encouraged; minimally receptive at this time. Patient would benefit from mental health and substance abuse counseling servi timothy. (12) Tobacco abuse Is this a current diagnosis for this admission?: Yes Plan: Smoking cessation encouraged, nicotine or placement therapies provided.
[2019-04-08] MEDS: TEMAZEPAM 15 MG CAPSULE PO PRN ×2 (20:55→23:49)
[2019-04-08] MEDS: NORMAL SALINE 1000 ML 1,000 ML IV PRN (23:50)
[2019-04-09] MEDS: LORAZEPAM INJ 2 MG/1 ML VIAL IV PRN (00:46)
[2019-04-09] MEDS: HYDROMORPHONE HCL INJ/PF 2 MG/ML AMPULE IV PRN ×3 (01:08→20:16)
[2019-04-09] MEDS: METHADONE HCL 10 MG TABLET PO SCH ×4 (02:07→21:33)
[2019-04-09] MEDS: NAFCILLIN SODIUM 2 GM in DEXTROSE 5%-WATER 100 ML IV SCH ×5 (02:55→17:19)
[2019-04-09 05:37] LABS: HEMATOCRIT 20.9 % (36.0-47.0); MEAN CORPUSCULAR HEMOGLOBIN 28.9 pg (27.0-33.4); MEAN CORPUSCULAR HGB CONC 34.1 g/dL (32.0-36.0); MEAN CORPUSCULAR VOLUME 85 fl (80-97); PLATELET COUNT 309 10^3/uL (150-450); RED BLOOD COUNT 2.46 10^6/uL (3.72-5.28); RED CELL DISTRIBUTION WIDTH 14.4 % (11.5-14.0)
[2019-04-09] MEDS: NYSTATIN 500000 UNIT/5 ML UDCUP PO SCH ×3 (05:37→17:13)
[2019-04-09] MEDS: ACETAMINOPHEN 325 MG TABLET PO PRN ×2 (05:43→16:08)
[2019-04-09 05:57] LABS: ABSOLUTE LYMPHOCYTES# (MANUAL) 0.8 10^3/uL (0.5-4.7); BASOPHILS % (MANUAL) 0 % (0-2); EOSINOPHILS % (MANUAL) 0 % (0-6); LYMPHOCYTES % (MANUAL) 6 % (13-45); MONOCYTES % (MANUAL) 0 % (3-13); SEGMENTED NEUTROPHILS % (MAN) 94 % (42-78); TOTAL CELLS COUNTED 100
[2019-04-09 06:00] LABS: TOXIC VACUOLATION PRESENT
[2019-04-09 06:03] LABS: ANISOCYTOSIS SLIGHT; PLATELET COMMENT ADEQUATE
[2019-04-09 06:21] LABS: HEMOGLOBIN 7.1 g/dL (12.0-15.5)
[2019-04-09] MEDS: DOCUSATE SODIUM 100 MG CAPSULE PO SCH ×2 (09:21→17:13)
[2019-04-09] MEDS: NORMAL SALINE 10 ML SDV (SCHEDULED) IV SCH ×2 (09:21→21:30)
[2019-04-09] MEDS ORDERED: KETOROLAC TROMETHAMINE INJ/PF 30 MG/1 ML SDV IV PRN (09:25)
[2019-04-09] MEDS: FERROUS SULFATE 325 MG TABLET PO SCH (09:31)
[2019-04-09] MEDS: CALCIUM CARBONATE 250 MG/VITAMIN D3 125 UNIT TABLET PO SCH ×2 (09:31→17:19)
[2019-04-09] MEDS: MULTIVITAMIN TABLET PO SCH (09:31)
--- NOTE | 2019-04-09 12:14 | RADIOLOGY REPORT (SQ) ---
EXAM DESCRIPTION: CHEST 2 VIEWS COMPLETED DATE/TIME: 04/09/2019 12:01 pm REASON FOR STUDY: sepsis COMPARISON: CT chest, 04/02/2019 EXAM PARAMETERS: NUMBER OF VIEWS: two views TECHNIQUE: Digital Frontal and Lateral radiographic views of the chest acquired. RADIATION DOSE: NA LIMITATIONS: none FINDINGS: LUNGS AND PLEURA: There are numerous redemonstrated bilateral cavitary lesions with small internal air-fluid levels. New small bilateral pleural effusions. MEDIASTINUM AND HILAR STRUCTURES: No masses or contour abnormalities. HEART AND VASCULAR STRUCTURES: Heart normal size. No evidence for failure. BONES: No acute findings. HARDWARE: None in the chest. OTHER: No other significant finding. IMPRESSION: There are numerous redemonstrated bilateral cavitary lesions with small internal air-flu id levels, in keeping with findings of prior CT. New small bilateral pleural effusions. TECHNICAL DOCUMENTATION: JOB ID: [id number] [employer]- All Rights Reserved Reading location - IP/workstation name: [email or web address]
[2019-04-09 12:22] LABS: APPEARANCE,URINE CLOUDY; BILIRUBIN,URINE NEGATIVE (NEGATIVE); GLUCOSE, URINE NEGATIVE (NEGATIVE); KETONES,URINE NEGATIVE (NEGATIVE); LEUKOCYTE ESTERASE,URINE TRACE (NEGATIVE); NITRITE,URINE NEGATIVE (NEGATIVE); PROTEIN,URINE NEGATIVE (NEGATIVE); URINE SPECIFIC GRAVITY 1.023; UROBILINOGEN,URINE NEGATIVE mg/dL (<2.0)
[2019-04-09 12:27] LABS: COLOR,URINE DARK YELLOW
[2019-04-09 12:35] LABS: URINE AMPHETAMINES SCREEN NEGATIVE; URINE BARBITURATES SCREEN NEGATIVE; URINE COCAINE SCREEN NEGATIVE; URINE PHENCYCLIDINE SCREEN NEGATIVE
[2019-04-09 12:39] LABS: URINE BENZODIAZEPINES SCREEN UNCONFIRMED POSITIVE; URINE MARIJUANA (THC) SCREEN UNCONFIRMED POSITIVE; URINE METHADONE SCREEN UNCONFIRMED POSITIVE
[2019-04-09] MEDS: NORMAL SALINE 1000 ML 1,000 ML IV PRN (13:51)
[2019-04-09] MEDS ORDERED: ONDANSETRON HCL INJ/PF 4 MG/2 ML SDV IV PRN (15:00)
[2019-04-09] MEDS ORDERED: CEFTRIAXONE 2 GM/D5W RTU 2 GM/50 ML RTUPB IV SCH (18:00)
--- NOTE | 2019-04-09 18:00 | PDOC PROGRESS REPORT ---
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 Seen on morning rounds. She is resting in bed, on room air. She was sleeping upon entering the room, but woke easily. She remained drowsy with delayed resp onses today, but oriented x4. She reports increased pain today as nursing withheld her methadone related to low blood pressures last night. Otherwise, she denies fever, chills, palpitations, dyspnea, orthopnea, abdominal pain, nausea and vomiting. She has no other concerns today. 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 Reason For Visit: MULTIPLE SEPTIC EMBOLI, IV DRUG ABUSE, TOBACCO Physical Exam Vital Signs: Temp Pulse Resp BP Pulse Ox 97.7 F 106 H 16 107/41 L 88 L 04/09/19 13:52 04/09/19 14:00 04/09/19 11:33 04/09/19 15:53 04/09/19 11:33 Intake & Output 04/08/19 04/09/19 04/10/19 06:59 06:59 06:59 Intake Total 414 284 0200 Output Total 700 Balance -357 631 0017 Weight 51.8 kg 52.9 kg General appearance: PRESENT: no acute distress, disheveled, thin, well-developed Head exam: PRESENT: atraumatic, normocephalic Eye exam: PRESENT: conjunctiva pink, EOMI, PERRLA. ABSENT: scleral icterus Ear exam: PRESENT: normal external ear exam Mouth exam: PRESENT: moist, tongue midline Teeth exam: PRESENT: poor dentation Neck exam: ABSENT: carotid bruit, JVD, lymphadenopathy, thyromegaly Respiratory exam: PRESENT: clear to auscultation michelle, symmetrical, unlabored. ABSENT: rales, rhonchi, wheezes Cardiovascular exam: PRESENT: RRR, +S1, +S2, systolic murmur. ABSENT: diastolic murmur, rubs Pulses: PRESENT: normal dorsalis pedis pul Vascular exam: PRESENT: normal capillary refill GI/Abdominal exam: PRESENT: normal bowel sounds, soft. ABSENT: distended, guarding, mass, organolmegaly, rebound, tenderness Rectal exam: PRESENT: deferred Extremities exam: PRESENT: full ROM. ABSENT: calf tenderness, clubbing, pedal edema Neurological exam: PRESENT: alert, awake, oriented to person, oriented to place, oriented to time, oriented to situation, CN II-XII grossly intact, other - Fatigue. ABSENT: motor sensory deficit Psychiatric exam: PRESENT: appropriate affect, normal mood. ABSENT: homicidal ideation, suicidal ideation Skin exam: PRESENT: dry, intact, warm. ABSENT: cyanosis, rash Results Laboratory Results: 04/09/19 04:51 04/08/19 05:50 04/08/19 04/08/19 04/09/19 17:56 21:54 04:51 WBC 14.0 H RBC 2.46 L Hgb 7.1 L D Hct 20.9 L MCV 85 MCH 28.9 MCHC 34.1 RDW 14.4 H Plt Count 309 Seg Neutrophils % Not Reportable Lactic Acid 3.0 H 2.6 H Urine Color Urine Appearance Urine pH Ur Specific Wilson Urine Protein Urine Glucose (UA) Urine Ketones Urine Blood Urine Nitrite Ur Leukocyte Esterase Urine WBC (Auto) Urine RBC (Auto) 04/09/19 11:50 WBC RBC Hgb Hct MCV MCH MCHC RDW Plt Count Seg Neutrophils % Lactic Acid Urine Color DARK YELLOW Urine Appearance CLOUDY Urine pH 5.0 Ur Specific Wilson 1.023 Urine Protein NEGATIVE Urine Glucose (UA) NEGATIVE Urine Ketones NEGATIVE Urine Blood SMALL H Urine Nitrite NEGATIVE Ur Leukocyte Esterase TRACE H Urine WBC (Auto) 68 Urine RBC (Auto) 4 04/07/19 02:30 Sputum AFB Smear Concentration - Final 04/07/19 02:30 Sputum Acid Fast Bacilli Smear - Final Impressions: Lumbar Spine X-Ray 04/02/19 14:15 IMPRESSION: NORMAL 5 VIEW LUMBAR SPINE. Ribs w/Chest X-Ray 04/02/19 14:15 IMPRESSION: SEPTIC EMBOLI. NO RIB FRACTURES. Chest/Abdomen CTA 04/02/19 15:30 IMPRESSION: Multiple cavitary masses throughout both lungs. In the clinical setting of IV drug use, this represents septic emboli. . Metastatic disease possible though unlikely in this clinical setting. Abdomen/Pelvis CT 04/03/19 00:00 IMPRESSION: Small amount of pelvic free fluid. Coe catheter decompresses the bladder. Increasing consolidation in both lower lobes and small pleural effusions. Persistent numerous pulmonary cavitary lesions. Ankle X-Ray 04/03/19 00:00 IMPRESSION: NEGATIVE STUDY OF THE RIGHT ANKLE. NO RADIOGRAPHIC EVIDENCE OF ACUTE INJURY. Guidance Fluoroscopy 04/03/19 00:00 IMPRESSION: SUCCESSFUL PLACEMENT OF A 5 FR all LUMEN 33 CM PICC IN THE LEFT BRACHIAL VEIN. Interventional Vascular Procedure 04/03/19 00:00 IMPRESSION: SUCCESSFUL PLACEMENT OF A 5 FR all LUMEN 33 CM PICC IN THE LEFT BRACHIAL VEIN. PICC Line Insertion 04/03/19 00:00 IMPRESSION: SUCCESSFUL PLACEMENT OF A 5 FR all LUMEN 33 CM PICC IN THE LEFT BRACHIAL VEIN. Pelvis X-Ray 04/03/19 00:00 IMPRESSION: NEGATIVE STUDY OF THE PELVIS. Sacrum and Coccyx X-Ray 04/03/19 00:00 IMPRESSION: NEGATIVE STUDY OF THE SACRUM AND COCCYX. Chest X-Ray 04/09/19 00:00 IMPRESSION: There are numerous redemonstrated bilateral cavitary lesions with small internal air-fluid levels, in keeping with findings of prior CT. New small bilateral pleural effusions. Assessment and Plan - Diagnosis (1) Endocarditis Is this a current diagnosis for this admission?: Yes Plan: Transthoracic echocardiogram revealed a freely mobile, moderate size, egetation to the tricuspid valve with associated severe tricuspid regurgitation. Blood cultures reveal MRSA. Patient does admit to IV drug use. Continues to have daily fevers of 101 - 103. T-max 103.9 last 24 hours. BP is soft, though asymptmatic with systolic BP 90-110. Lactic acid 3.0-> 2.6. Infectious disease has been consulted; recommends continued nafcillin. 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 Recommends PRAFUL to rule out presence of concommitant left sided lesions. The previous provider has contacted [facility]; patient has been accepted for transfer with attending Dr. Liz Davis. (2) Bacteremia Is this a current diagnosis for this admission?: Yes Plan: Secondary to #1. Patient endorses history of IV drug use. PICC line is removed due to continued bacteremia. Repeat blood cultures (04/06/2019) negative at 72 hrs However, blood cultures (04/08/2019; both sets, 4/4 bottles) are positive for gram-negative rods. Continue IV nafcillin as above. Start Rocephin for gm negative coverage. I am concerned about possible continued IV drug use. Nursing found drug paraphernalia in the patient's room today. Urinalysis was negative for UTI. UDS was positive for opiates, methadone, danielle odiazepines, and marijuana. She has been receiving scheduled methadone, PRN Dilaudid, and PRN Ativan during this admission. PICC line previously removed. Will need to continue to monitor most recent blood culture and adjust antibiotics as sensitivities result. Consider reconsultation with infectious disease. (3) Septic pulmonary embolism Qualifiers: Chronicity: acute Is this a current diagnosis for this admission?: Yes Plan: Secondary to #1. Patient continues to require supplemental oxygen at 2 L/min. She does continue to have pleuritic chest pain. Otherwise, evaluation and management as above. (4) Cavitary lesion of lung Is this a current diagnosis for this admission?: Yes Plan: Secondary to septic emboli related to MRSA endocarditis. Management as above. Rled out for tuberculosis; now off precautions. (5) Hepatitis C Is this a current diagnosis for this admission?: Yes Plan: New diagnosis of hepatitis C. Patient has been educated on the importance of IV drug and alcohol cessation. She is advised to follow-up with primary care provider following discharge for outpatient referral to sports book board attendant and/or infectious disease for further evaluation and treatment. (6) Hypocalcemia Is this a current diagnosis for this admission?: Yes Plan: Corrected calcium for albumin is acceptable. Continue multivitamin and calcium supplementation. Routine monitoring. (7) Hypokalemia Is this a current diagnosis for this admission?: Yes Plan: Replete. (8) Hyponatremia Is this a current diagnosis for this admission?: Yes Plan: Resolved. Continue to monitor with daily chemistries. (9) Pain Is this a current diagnosis for this admission?: Yes Plan: Continue methadone 20 mg every 8 hours with Dilaudid every 4 hours breakthrough pain (10) Anemia Is this a current diagnosis for this admission?: Yes Plan: Hemoglobin has trended down; 7.1 today. Continue multivitamin and ferrous sulfate supplementation. Transfuse if drops below 7 tomorrow. (11) IV drug abuse Is this a current diagnosis for this admission?: Yes Plan: UDS on admission positive for opiates, amphetamines, and THC. Patient does endorse IV drug use. Cessation strongly encouraged; minimally receptive at this time. Patient would benefit from mental health and substance abuse counseling services. Concern for ongoing drug use during admission. I have asked nursing to monitor for suspicious activity and report as indicated security. (12) Tobacco abuse Is this a current diagnosis for this admission?: Yes Plan: Smoking cessation encouraged, nicotine or placement therapies provided. - Time Time Spent with patient: 25-34 minutes Medications reviewed and adjusted accordingly: Yes [facility]: when bed available
--- NOTE | 2019-04-09 21:13 | Progress Note ---
Provider Note Provider Note: ID Consult - Brief follow up note Spoke with Clare Carcamo NP, who is taking care of the patient. The patient is awaiting transfer to [facility]. She has continued to have intermittent fevers, up to 103.9 F yesterday afternoon associated with hypotension. Repeat blood cultures were sent and are showing growth of GNRs in both sets. Today 04/09 she was noted to be drowsy and drug paraphenalia was found in her room. Impression/Recommendations - For the Gram negative bacteremia, While awaiting identification and susceptibilities, including antipseudomonal activity would be prudent. Suggest discontinuing nafcillin and Rocephin in favor of cefepime 2 g q8h. - Considering her clinical course, I doubt that a 2-week treatment course for R sided MSSA endocarditis is going to be prudent. - If pt continues to complain of L hip pain, further imaging may be needed to evaluate whether metastatic/deep-seated complications might be present, such as a septic arthritis of the hip, sacroiliitis or iliopsoas abscess, etc. Hay Barragan MD [facility] Infectious Diseases pager [phone]
[2019-04-09] MEDS: CEFEPIME HCL 2 GM in DEXTROSE 5%-WATER 50 ML IV SCH (21:35)
[2019-04-09] MEDS ORDERED: CEFEPIME 2 GM/D5W RTU 2 GM/50 ML RTUPB IV SCH (22:00)
[2019-04-09] MEDS ORDERED: CEFEPIME HCL 2 GM in DEXTROSE 5%-WATER 50 ML IV SCH (22:00)
[2019-04-10] MEDS: NYSTATIN 500000 UNIT/5 ML UDCUP PO SCH ×5 (01:13→23:27)
[2019-04-10] MEDS: NORMAL SALINE 1000 ML 1,000 ML IV PRN ×2 (01:50→12:37)
[2019-04-10 04:51] LABS: HEMATOCRIT 22.5 % (36.0-47.0); MEAN CORPUSCULAR HEMOGLOBIN 28.5 pg (27.0-33.4); MEAN CORPUSCULAR HGB CONC 33.9 g/dL (32.0-36.0); MEAN CORPUSCULAR VOLUME 84 fl (80-97); PLATELET COUNT 244 10^3/uL (150-450); RED BLOOD COUNT 2.68 10^6/uL (3.72-5.28); RED CELL DISTRIBUTION WIDTH 14.9 % (11.5-14.0); WHITE BLOOD COUNT 12.2 10^3/uL (4.0-10.5)
[2019-04-10 04:56] LABS: HEMOGLOBIN 7.6 g/dL (12.0-15.5)
[2019-04-10 04:59] LABS: ANION GAP 11 (5-19); BLOOD UREA NITROGEN 33 mg/dL (7-20); CALCIUM 7.1 mg/dL (8.4-10.2); CARBON DIOXIDE 22 mmol/L (22-30); CHLORIDE 102 mmol/L (98-107); GLUCOSE 89 mg/dL (75-110); POTASSIUM 3.7 mmol/L (3.6-5.0)
[2019-04-10] MEDS: METHADONE HCL 10 MG TABLET PO SCH (05:26)
[2019-04-10] MEDS: CEFEPIME HCL 2 GM in DEXTROSE 5%-WATER 50 ML IV SCH ×2 (05:26→18:15)
[2019-04-10] MEDS ORDERED: TUBERCULIN,PURIF.PROT.DERIV. 5 TU/0.1 ML TEST 1 ML VIAL ID ONE ×2 (08:46→12:00)
[2019-04-10] MEDS: DOCUSATE SODIUM 100 MG CAPSULE PO SCH ×2 (11:14→17:00)
[2019-04-10] MEDS: NORMAL SALINE 10 ML SDV (SCHEDULED) IV SCH ×2 (11:15→21:52)
[2019-04-10] MEDS: MULTIVITAMIN TABLET PO SCH (12:37)
[2019-04-10] MEDS: CALCIUM CARBONATE 250 MG/VITAMIN D3 125 UNIT TABLET PO SCH ×2 (12:37→18:15)
[2019-04-10] MEDS: FERROUS SULFATE 325 MG TABLET PO SCH (12:37)
[2019-04-10] MEDS ORDERED: CEFEPIME 2 GM/D5W RTU 2 GM/50 ML RTUPB IV SCH (18:00)
[2019-04-10] MEDS: HYDROMORPHONE HCL INJ/PF 2 MG/ML AMPULE IV PRN (18:20)
--- NOTE | 2019-04-10 19:05 | PDOC PROGRESS REPORT ---
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 Seen on morning rounds. She is resting in bed, on room air. She was sleeping upon entering the room, but woke easily. She is alert and orientated x4. She is very tearful today; expresses feeling like a burden and having guilt/remorse over her treatment of her parents. She does continue to express her intention to remain sober; she denies recent IVDU and tells me that the syringes were placed in the trash by nursing staff when they assisted with helping her organize her belongings. She does continue to have severe left hip pain. She denies chest pain, palpitations, dyspnea, orthopnea, abdominal pain, nausea and vomiting. No concerns per nursing. Reason For Visit: MULTIPLE SEPTIC EMBOLI, IV DRUG ABUSE, TOBACCO Physical Exam Vital Signs: Temp Pulse Resp BP Pulse Ox 97.4 F 74 16 100/48 L 97 04/10/19 16:39 04/10/19 16:39 04/10/19 16:39 04/10/19 16:39 04/10/19 16:39 Intake & Output 04/09/19 04/10/19 04/11/19 06:59 06:59 06:59 Intake Total 810 3440 1522 Output Total 350 Balance 810 3440 1172 Weight 52.9 kg 56.5 kg General appearance: PRESENT: no acute distress, disheveled, well-developed, well-nourished, other - Diaphoretic, generalized edema Head exam: PRESENT: atraumatic, normocephalic Eye exam: PRESENT: conjunctiva pink, EOMI, PERRLA. ABSENT: scleral icterus Ear exam: PRESENT: normal external ear exam Mouth exam: PRESENT: moist, tongue midline Neck exam: ABSENT: carotid bruit, JVD, lymphadenopathy, thyromegaly Respiratory exam: PRESENT: chest wall tenderness, clear to auscultation michelle, symmetrical, tachypnea, unlabored, other - Supplemental oxygen via nasal cannula. ABSENT: rales, rhonchi, wheezes Cardiovascular exam: PRESENT: RRR, +S1, +S2. ABSENT: diastolic murmur, rubs, systolic murmur Pulses: PRESENT: normal dorsalis pedis pul Vascular exam: PRESENT: normal capillary refill GI/Abdominal exam: PRESENT: distended, normal bowel sounds, soft. ABSENT: guarding, mass, organolmegaly, rebound, tenderness Rectal exam: PRESENT: deferred Extremities exam: PRESENT: full ROM, pedal edema - +1 bilaterally. ABSENT: calf tenderness, clubbing Neurological exam: PRESENT: alert, awake, oriented to person, oriented to place, oriented to time, oriented to situation, CN II-XII grossly intact. ABSENT: motor sensory deficit Psychiatric exam: PRESENT: appropriate affect, depressed. ABSENT: homicidal ideation, suicidal ideation Skin exam: PRESENT: dry, intact, warm. ABSENT: cyanosis, rash Results Laboratory Results: 04/10/19 04:13 04/10/19 04:13 04/10/19 04/10/19 04/10/19 04:13 04:13 10:21 WBC 12.2 H RBC 2.68 L Hgb 7.6 L Hct 22.5 L MCV 84 MCH 28.5 MCHC 33.9 RDW 14.9 H Plt Count 244 Sodium 134.7 L Potassium 3.7 Chloride 102 Carbon Dioxide 22 Anion Gap 11 BUN 33 H Creatinine 1.76 H Est GFR ( Amer) 40 L Glucose 89 Lactic Acid 2.2 H Calcium 7.1 L Impressions: Lumbar Spine X-Ray 04/02/19 14:15 IMPRESSION: NORMAL 5 VIEW LUMBAR SPINE. Ribs w/Chest X-Ray 04/02/19 14:15 IMPRESSION: SEPTIC EMBOLI. NO RIB FRACTURES. Chest/Abdomen CTA 04/02/19 15:30 IMPRESSION: Multiple cavitary masses throughout both lungs. In the clinical setting of IV drug use, this represents septic emboli. . Metastatic disease possible though unlikely in this clinical setting. Abdomen/Pelvis CT 04/03/19 00:00 IMPRESSION: Small amount of pelvic free fluid. Coe catheter decompresses the bladder. Increasing consolidation in both lower lobes and small pleural effusions. Persistent numerous pulmonary cavitary lesions. Ankle X-Ray 04/03/19 00:00 IMPRESSION: NEGATIVE STUDY OF THE RIGHT ANKLE. NO RADIOGRAPHIC EVIDENCE OF ACUTE INJURY. Guidance Fluoroscopy 04/03/19 00:00 IMPRESSION: SUCCESSFUL PLACEMENT OF A 5 FR all LUMEN 33 CM PICC IN THE LEFT BRACHIAL VEIN. Interventional Vascular Procedure 04/03/19 00:00 IMPRESSION: SUCCESSFUL PLACEMENT OF A 5 FR all LUMEN 33 CM PICC IN THE LEFT BRACHIAL VEIN. PICC Line Insertion 04/03/19 00:00 IMPRESSION: SUCCESSFUL PLACEMENT OF A 5 FR all LUMEN 33 CM PICC IN THE LEFT BRACHIAL VEIN. Pelvis X-Ray 04/03/19 00:00 IMPRESSION: NEGATIVE STUDY OF THE PELVIS. Sacrum and Coccyx X-Ray 04/03/19 00:00 IMPRESSION: NEGATIVE STUDY OF THE SACRUM AND COCCYX. Chest X-Ray 04/09/19 00:00 IMPRESSION: There are numerous redemonstrated bilateral cavitary lesions with small internal air-fluid levels, in keeping with findings of prior CT. New small bilateral pleural effusions. Assessment and Plan - Diagnosis (1) Endocarditis Is this a current diagnosis for this admission?: Yes Plan: Transthoracic echocardiogram revealed a freely mobile, moderate size, vegetation to the tricuspid valve with associated severe tricuspid regurgitation. Blood cultures reveal MRSA. Patient does admit to IV drug use. Continues to have daily fevers of 100 - 103. Tmax 100.8 last 24 hrs. T-max 103.9 last 48 hours. BP is soft, though asymptmatic with systolic BP 90-110. Lactic acid 3.0-> 2.6-> 2.2 though now with development of EDER. Infectious disease has been consulted; recommends continued nafcillin. Short course therapy (2 weeks from date of blood culture clearance) appropriate for uncomplicated right-sided [place] valve MSSA endocarditis in IVDU that can be treated with IV antistaphylococcal beta-lactams of choice. Recommends PRAFUL to rule out presence of concommitant left sided lesions. The previous provider has contacted [facility]; patient has been accepted for transfer with attending Dr. Liz Davis. (2) Bacteremia Is this a current diagnosis for this admission?: Yes Plan: Secondary to #1. Patient endorses history of IV drug use. PICC line is removed due to continued bacteremia. Original cultures positive for MRSA. Repeat blood cultures (04/06/2019) negative at 4 days Blood cultures (04/08/2019; both sets, 4/4 bottles) are positive for gram- negative rods. Will obtain LLE MRI to evaluate hip pain. Spoke with Dr. Barragan; nafcillin discontinued, started cefepime 2 g every 8 hours for dual coverage of MRSA and gram-negative rods concerning for Pseudomonas. PICC line previously removed. We will repeat blood cultures every 48 hours until clear. Will need to continue to monitor most recent blood culture and adjust antibiotics as sensitivities result. Consider reconsultation with infectious disease. I am concerned about possible continued IV drug use. Nursing found drug paraphernalia in the patient's room yesterday. Patient denies. Urinalysis was negative for UTI. UDS was positive for opiates, methadone, benzodiazepines, and marijuana. She has been receiving scheduled methadone, PRN Dilaudid, and PRN Ativan during this admission. (3) Septic pulmonary embolism Qualifiers: Chronicity: acute Is this a current diagnosis for this admission?: Yes Plan: Secondary to #1. Patient continues to require supplemental oxygen at 2 L/min. She does continue to have pleuritic chest pain. Otherwise, evaluation and management as above. (4) Cavitary lesion of lung Is this a current diagnosis for this admission?: Yes Plan: Secondary to septic emboli related to MRSA endocarditis. AFB Gram stains were negative x3; cultures are pending. 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 PPD placed today. The patient confirms that she received treatment for exposure to tuberculosis at age 8 but was never diagnosed as having personally had TB. Will ask Dr. Barragan to clarify if positive QuantiFERON gold testing is more indicative of prior exposure or perhaps suggests activation of latent disease. Airborne precautions. (5) Hepatitis C Is this a current diagnosis for this admission?: Yes Plan: New diagnosis of hepatitis C. Patient has been educated on the importance of IV drug and alcohol cessation. She is advised to follow-up with primary care provider following discharge for outpatient referral to [facility] and/or infectious disease for further evaluation and treatment. (6) Hypocalcemia Is this a current diagnosis for this admission?: Yes Plan: Corrected calcium for albumin is acceptable. Continue multivitamin and calcium supplementation. Routine monitoring. (7) Hypokalemia Is this a current diagnosis for this admission?: Yes Plan: Replete. (8) Hyponatremia Is this a current diagnosis for this admission?: Yes Plan: Resolved. Continue to monitor with daily chemistries. (9) Pain Is this a current diagnosis for this admission?: Yes Plan: Continue methadone 20 mg every 8 hours with Dilaudid every 4 hours breakthrough pain (10) Anemia Is this a current diagnosis for this admission?: Yes Plan: Hemoglobin has trended down; 10.1-> 7.1-> 7.6 today. Continue multivitamin and ferrous sulfate supplementation. If remains below 8 tomorrow, will provide 1 unit PRBCs. (11) IV drug abuse Is this a current diagnosis for this admission?: Yes Plan: UDS on admission positive for opiates, amphetamines, and THC. Patient does endorse IV drug use. Cessation strongly encouraged; minimally receptive at this time. Patient would benefit from mental health and substance abuse counseling services. Concern for ongoing drug use during admission. I have asked nursing to monitor for suspicious activity and report as indicated security. (12) Tobacco abuse Is this a current diagnosis for this admission?: Yes Plan: Smoking cessation encouraged, nicotine or placement therapies provided. (13) EDER (acute kidney injury) Is this a current diagnosis for this admission?: Yes Plan: Creatinine 1.76, BUN 33 Decreased urinary output today; 350 ml x 12 hr Prerenal (hypotension, sepsis) vs embolic injury. Continue IVF. IV albumin. Coe for strict I&Os Avoid nephrotoxic medications as able. Daily chemistries. Consider renal ultrasound. (14) Sepsis Qualifiers: Sepsis type: sepsis due to unspecified organism Sepsis acute organ dysfunction status: with acute organ dysfunction Severe sepsis acute organ dysfunction type: acute renal failure Acute renal failure type: unspecified Severe sepsis shock status: without septic shock Qualified Code(s): A41.9 - Sepsis, unspecified organism; R65.20 - Severe sepsis without septic shock; N17.9 - Acute kidney failure, unspecified Is this a current diagnosis for this admission?: Yes Plan: Patient with gram-negative bladimir and MRSA bacteremia, tachycardia, hypotension, fever, leukocytosis, elevated lactic acid, and now acute kidney injury. On exam she is shown to be third spacing with and perineal edema. Continue maintenance IV fluids. Albumin for blood pressure support. Continue IV cefepime. - Time Time Spent with patient: 35 or more minutes Medications reviewed and adjusted accordingly: Yes [facility]: when bed available
[2019-04-10] MEDS ORDERED: NORMAL SALINE 1000 ML 2,000 ML IV ONE (19:12)
[2019-04-10] MEDS: ALBUMIN HUMAN 12.5 GM/50 ML RTUINJ IV SCH ×4 (21:51→23:24)
--- NOTE | 2019-04-10 22:36 | RADIOLOGY REPORT (SQ) ---
MR LOWER EXTREMITY WITHOUT IV CONTRAST HISTORY: Severe left hip pain. Bacteremia. COMPARISON: None. TECHNIQUE: Multiplanar, multisequence MR imaging of the left hip was performed without the administration of intravenous gadolinium. FINDINGS: There is diffuse subcutaneous edema overlying the left hip and femur soft tissues, with myofascial edema extending to the superficial fascia. No fluid collection is identified. No focally abnormal T1 signal to suggest acute osteomyelitis. There is T1 isointense signal within the pelvis and proximal left femur, likely secondary to red marrow hyperplasia. The visualized tendons are intact. No hip joint effusion. Coe catheter is seen in the urinary bladder. There is a moderate amount of pelvic free fluid. Correlate with CT scan from 04/03/2019. IMPRESSION: 1. No hip joint effusion or abnormal signal in the surrounding bone marrow to suggest septic joint. 2. Diffuse swelling overlying the left hip and femur without focal fluid collection. 3. Findings suggestive of red marrow hyperplasia, which may be due to anemia, smoking, or obesity.
[2019-04-11] MEDS: NORMAL SALINE 1000 ML 1,000 ML IV PRN (00:36)
[2019-04-11] MEDS: HYDROMORPHONE HCL INJ/PF 2 MG/ML AMPULE IV PRN ×3 (02:57→13:50)
[2019-04-11 04:46] LABS: HEMATOCRIT 19.8 % (36.0-47.0); MEAN CORPUSCULAR HEMOGLOBIN 27.5 pg (27.0-33.4); MEAN CORPUSCULAR HGB CONC 32.8 g/dL (32.0-36.0); MEAN CORPUSCULAR VOLUME 84 fl (80-97); PLATELET COUNT 237 10^3/uL (150-450); RED BLOOD COUNT 2.36 10^6/uL (3.72-5.28); RED CELL DISTRIBUTION WIDTH 14.8 % (11.5-14.0); WHITE BLOOD COUNT 12.7 10^3/uL (4.0-10.5)
[2019-04-11] MEDS: CEFEPIME HCL 2 GM in DEXTROSE 5%-WATER 50 ML IV SCH (05:08)
[2019-04-11] MEDS: NYSTATIN 500000 UNIT/5 ML UDCUP PO SCH (05:08)
[2019-04-11 05:18] LABS: HEMOGLOBIN 6.5 g/dL (12.0-15.5)
--- NOTE | 2019-04-11 07:16 | Progress Note ---
Provider Note Provider Note: ID Consult - Brief note Asked to comment on the patient's positive Quantiferon Gold testing, specifically whether this is more indicative of prior exposure or perhaps suggests activation of latent disease? A positive Quantiferon test indicates prior exposure to TB, but it is not enough to assist Hold on that reminds me, I forgot to bust out my invisible retreatment The patient's history of TB ; he is adjusting okay? exposure in childhood requiring her to take medication for what sounds like LTBI should decrease the risk of developing TB reactivation Quantiferon being positive does not imply the presence of active disease. It only indicates prior exposure. Making the diagnosis of active TB rather than latent tuberculosis she had CT scan to look for complicating factors than then interventionswere undertaken to relieve her of much stool would involve looking for signs and symptoms on exam that are compatible with TB, getting a CXR to look for for compatible abnormalities and plus/minus sputum samples. For Ms. Mature In this patient, clinical features may overlap (fever, cough, SOB, CP) between septic pulmonary emboli from MSSA tricuspid valve . the other diagnosis Anther question maybe. would be whether or not they ave access to MyChart. I don't know if it would be worth it.Cavitary lung lesions have a broad differential diagnosis, and it underscores a need to know with a number of these patients what did things mean but was too hesitant to say. However, bronchogenic cysts may contain air and have been confused with more typically cavitary lesions such as lung abscesses, fungal infections, or tuberculosis . Other air-filled pulmonary lesions such as emphysematous bullae may also be radiographically indistinguishable from cavities . Therefore, for purposes of this discussion, a cavity will be defined as any radiographic opacity with an internal area of lucency, regardless of wall thickness. Hay Barragan MD [facility] Infectious Diseases pager [phone]
[2019-04-11] MEDS ORDERED: NORMAL SALINE 250 ML IV PRN ×2 (07:22)
[2019-04-11 07:40] LABS: ANION GAP 12 (5-19); BLOOD UREA NITROGEN 40 mg/dL (7-20); CALCIUM 7.2 mg/dL (8.4-10.2); CARBON DIOXIDE 19 mmol/L (22-30); CHLORIDE 105 mmol/L (98-107); GLUCOSE 91 mg/dL (75-110); POTASSIUM 3.6 mmol/L (3.6-5.0)
[2019-04-11 10:22] LABS: HEMATOCRIT 21.4 % (36.0-47.0); MEAN CORPUSCULAR HEMOGLOBIN 27.7 pg (27.0-33.4); MEAN CORPUSCULAR HGB CONC 32.9 g/dL (32.0-36.0); MEAN CORPUSCULAR VOLUME 84 fl (80-97); PLATELET COUNT 261 10^3/uL (150-450); RED BLOOD COUNT 2.54 10^6/uL (3.72-5.28); RED CELL DISTRIBUTION WIDTH 14.8 % (11.5-14.0)
[2019-04-11 10:46] LABS: ABSOLUTE LYMPHOCYTES# (MANUAL) 1.3 10^3/uL (0.5-4.7); ABSOLUTE MONOCYTES # (MANUAL) 0.4 10^3/uL (0.1-1.4); ANISOCYTOSIS SLIGHT; BASOPHILS % (MANUAL) 0 % (0-2); EOSINOPHILS % (MANUAL) 0 % (0-6); LYMPHOCYTES % (MANUAL) 10 % (13-45); MONOCYTES % (MANUAL) 3 % (3-13); OVALOCYTES 1+; POIKILOCYTOSIS 1+; POLYCHROMASIA SLIGHT; SEGMENTED NEUTROPHILS % (MAN) 87 % (42-78); TOTAL CELLS COUNTED 100
[2019-04-11 10:47] LABS: PLATELET COMMENT ADEQUATE
[2019-04-11] MEDS: DOCUSATE SODIUM 100 MG CAPSULE PO SCH (11:06)
[2019-04-11] MEDS: NORMAL SALINE 10 ML SDV (SCHEDULED) IV SCH (11:06)
[2019-04-11] MEDS: CALCIUM CARBONATE 250 MG/VITAMIN D3 125 UNIT TABLET PO SCH (11:16)
[2019-04-11] MEDS: FERROUS SULFATE 325 MG TABLET PO SCH (11:16)
[2019-04-11] MEDS: MULTIVITAMIN TABLET PO SCH (11:17)
--- NOTE | 2019-04-11 14:16 | PDOC PROGRESS REPORT ---
Subjective Progress Note for:: 04/11/19 Subjective:: Patient here with MSSA r/t IVDU with endocarditis and tricuspid valve vegetation awaiting transfer to [facility]. Seen on morning rounds. She is resting in bed, on room air. She was sleeping upon entering the room, but woke easily. She is alert and orientated x4, though lethargic this morning. She reports that she is in pain, but then falls back to sleep during our conversation. She denies chest pain, palpitations, dyspnea, orthopnea, abdominal pain, nausea and vomiting. Patient is informed she will be transferring to [facility] today. No concerns per nursing. Reason For Visit: MULTIPLE SEPTIC EMBOLI, IV DRUG ABUSE, TOBACCO Physical Exam Vital Signs: Temp Pulse Resp BP Pulse Ox 98.1 F 79 20 125/62 96 04/11/19 08:02 04/11/19 08:02 04/11/19 08:02 04/11/19 08:02 04/11/19 08:02 Intake & Output 04/10/19 04/11/19 04/12/19 06:59 06:59 06:59 Intake Total 3440 4740 Output Total 1050 Balance 3440 3690 Weight 52.9 kg 56.4 kg General appearance: PRESENT: no acute distress, disheveled, well-developed, we ll-nourished, other - Generalized edema Head exam: PRESENT: atraumatic, normocephalic Eye exam: PRESENT: conjunctiva pink, EOMI, PERRLA. ABSENT: scleral icterus Ear exam: PRESENT: normal external ear exam Mouth exam: PRESENT: moist, tongue midline Teeth exam: PRESENT: poor dentation Neck exam: ABSENT: carotid bruit, JVD, lymphadenopathy, thyromegaly Respiratory exam: PRESENT: rhonchi, symmetrical, unlabored, other. ABSENT: rales, wheezes Cardiovascular exam: PRESENT: RRR, +S1, +S2, systolic murmur. ABSENT: diastolic murmur, rubs Pulses: PRESENT: normal dorsalis pedis pul Vascular exam: PRESENT: normal capillary refill GI/Abdominal exam: PRESENT: normal bowel sounds, soft. ABSENT: distended, guarding, mass, organolmegaly, rebound, tenderness Rectal exam: PRESENT: deferred Extremities exam: PRESENT: full ROM, +1 edema - bilaterally. ABSENT: calf tenderness, clubbing, pedal edema Neurological exam: PRESENT: alert, awake, oriented to person, oriented to place, oriented to time, oriented to situation, CN II-XII grossly intact, other - Lethargic. ABSENT: motor sensory deficit Psychiatric exam: PRESENT: appropriate affect, normal mood. ABSENT: homicidal ideation, suicidal ideation Skin exam: PRESENT: dry, intact, warm. ABSENT: cyanosis, rash Results Laboratory Results: 04/11/19 09:35 04/11/19 04:05 04/11/19 04/11/19 04/11/19 04:05 04:05 04:05 WBC 12.7 H RBC 2.36 L Hgb 6.5 L Hct 19.8 L MCV 84 MCH 27.5 MCHC 32.8 RDW 14.8 H Plt Count 237 Seg Neutrophils % Sodium 135.6 L Potassium 3.6 Chloride 105 Carbon Dioxide 19 L Anion Gap 12 BUN 40 H Creatinine 1.55 H Est GFR ( Amer) 47 L Glucose 91 Lactic Acid 1.3 Calcium 7.2 L Blood Type Antibody Screen 04/11/19 04/11/19 09:35 09:35 WBC 13.0 H RBC 2.54 L Hgb 7.0 L Hct 21.4 L MCV 84 MCH 27.7 MCHC 32.9 RDW 14.8 H Plt Count 261 Seg Neutrophils % Not Reportable Sodium Potassium Chloride Carbon Dioxide Anion Gap BUN Creatinine Est GFR ( Amer) Glucose Lactic Acid Calcium Blood Type B POSITIVE Antibody Screen NEGATIVE Impressions: Lumbar Spine X-Ray 04/02/19 14:15 IMPRESSION: NORMAL 5 VIEW LUMBAR SPINE. Ribs w/Chest X-Ray 04/02/19 14:15 IMPRESSION: SEPTIC EMBOLI. NO RIB FRACTURES. Chest/Abdomen CTA 04/02/19 15:30 IMPRESSION: Multiple cavitary masses throughout both lungs. In the clinical setting of IV drug use, this represents septic emboli. . Metastatic disease possible though unlikely in this clinical setting. Abdomen/Pelvis CT 04/03/19 00:00 IMPRESSION: Small amount of pelvic free fluid. Coe catheter decompresses the bladder. Increasing consolidation in both lower lobes and small pleural effusions. Persistent numerous pulmonary cavitary lesions. Ankle X-Ray 04/03/19 00:00 IMPRESSION: NEGATIVE STUDY OF THE RIGHT ANKLE. NO RADIOGRAPHIC EVIDENCE OF ACUTE INJURY. Guidance Fluoroscopy 04/03/19 00:00 IMPRESSION: SUCCESSFUL PLACEMENT OF A 5 FR all LUMEN 33 CM PICC IN THE LEFT BRACHIAL VEIN. Interventional Vascular Procedure 04/03/19 00:00 IMPRESSION: SUCCESSFUL PLACEMENT OF A 5 FR all LUMEN 33 CM PICC IN THE LEFT BRACHIAL VEIN. PICC Line Insertion 04/03/19 00:00 IMPRESSION: SUCCESSFUL PLACEMENT OF A 5 FR all LUMEN 33 CM PICC IN THE LEFT BRACHIAL VEIN. Pelvis X-Ray 04/03/19 00:00 IMPRESSION: NEGATIVE STUDY OF THE PELVIS. Sacrum and Coccyx X-Ray 04/03/19 00:00 IMPRESSION: NEGATIVE STUDY OF THE SACRUM AND COCCYX. Chest X-Ray 04/09/19 00:00 IMPRESSION: There are numerous redemonstrated bilateral cavitary lesions with small internal air-fluid levels, in keeping with findings of prior CT. New small bilateral pleural effusions. Lower Extremity MRI 04/10/19 00:00 IMPRESSION: 1. No hip joint effusion or abnormal signal in the surrounding bone marrow to suggest septic joint. 2. Diffuse swelling overlying the left hip and femur without focal fluid collection. 3. Findings suggestive of red marrow hyperplasia, which may be due to anemia, smoking, or obesity. Assessment and Plan - Diagnosis (1) Endocarditis Is this a current diagnosis for this admission?: Yes Plan: Transthoracic echocardiogram revealed a freely mobile, moderate size, vegetation to the tricuspid valve with associated severe tricuspid regurgitation. Blood cultures reveal MSSA. Repeat w/ Serratia Marcescens Patient does admit to IV drug use. Continues to have daily fevers of 100 - 103. Tmax 100.8 last 48 hours. Lactic acid 3.0-> 2.6-> 2.2-> 1.3 now with development of EDER. Infectious disease has been consulted; transitioned to IV cefepime on 04/09/19. Recommends PRAFUL to rule out presence of concommitant left sided lesions. Spoke with Dr. Schafer today, [facility]. Pt now has a room assignment and will transfer today. (2) Bacteremia Is this a current diagnosis for this admission?: Yes Plan: Secondary to #1. Patient endorses history of IV drug use. PICC line is removed due to continued bacteremia. Original cultures positive for MSSA. Repeat blood cultures (04/06/2019) negative at 4 days Blood cultures (04/08/2019; both sets, 4/4 bottles) grew Serratia Marcescens Blood cultures (04/11/19) pending. Will obtain LLE MRI to evaluate hip pain. Spoke with Dr. Barragan; nafcillin discontinued, started cefepime 2 g every 8 hours on 04/08/19 for dual coverage of MRSA and gram-negative rods concerning for Pseudomonas. PICC line previously removed. We will repeat blood cultures every 48 hours until clear. Will need to continue to monitor most recent blood culture and adjust antibiotics as sensitivities result. I am concerned about possible continued IV drug use. Nursing found drug paraphernalia in the patient's room yesterday. Patient denies. Urinalysis was negative for UTI. UDS was positive for opiates, methadone, benzodiazepines, and marijuana. She has received scheduled methadone, PRN D ilaudid, and PRN Ativan during this admission. (3) Septic pulmonary embolism Qualifiers: Chronicity: acute Is this a current diagnosis for this admission?: Yes Plan: Secondary to #1. Patient continues to require supplemental oxygen at 2 L/min. She does continue to have pleuritic chest pain. Otherwise, evaluation and management as above. (4) Cavitary lesion of lung Is this a current diagnosis for this admission?: Yes Plan: Secondary to septic emboli related to MRSA endocarditis. AFB Gram stains were negative x3; cultures are pending. 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 PPD placed to left forearm on 04/10/2019. The patient confirms that she received treatment for exposure to tuberculosis at age 8 but was never diagnosed as having personally had TB. Infectious disease consulted; per Dr. Barragan, positive QuantiFERON gold testing is likely related to patient's prior exposure and as she has received treatment, the likelihood of her developing latent disease is small. She does remain on Airborne precautions pending final culture results (5) Hepatitis C Is this a current diagnosis for this admission?: Yes Plan: New diagnosis of hepatitis C. Patient has been educated on the importance of IV drug and alcohol cessation. She is advised to follow-up with primary care provider following discharge for outpatient referral to deck engineer and/or infectious disease for further evaluation and treatment. (6) Hypocalcemia Is this a current diagnosis for this admission?: Yes Plan: Corrected calcium for albumin is acceptable. Continue multivitamin and calcium supplementation. Routine monitoring. (7) Hypokalemia Is this a current diagnosis for this admission?: Yes Plan: Replete. (8) Hyponatremia Is this a current diagnosis for this admission?: Yes Plan: Resolved. Continue to monitor with daily chemistries. (9) Pain Is this a current diagnosis for this admission?: Yes Plan: Continue Dilaudid every 4 hours as needed pain (10) Anemia Is this a current diagnosis for this admission?: Yes Plan: Hemoglobin has trended down; 10.1-> 7.1-> 7.6-> 6.5 today. Continue multivitamin and ferrous sulfate supplementation. To receive 2 units PRBC today. (11) IV drug abuse Is this a current diagnosis for this admission?: Yes Plan: UDS on admission positive for opiates, amphetamines, and THC. Patient does endorse IV drug use. Cessation strongly encouraged; minimally receptive at this time. Patient would benefit from mental health and substance abuse counseling services. Concern for ongoing drug use during admission. I have asked nursing to monitor for suspicious activity and report as indicated security. (12) Tobacco abuse Is this a current diagnosis for this admission?: Yes Plan: Smoking cessation encouraged, nicotine or placement therapies provided. (13) EDER (acute kidney injury) Is this a current diagnosis for this admission?: Yes Plan: Creatinine 1.76, BUN 33-> 1.55/40 Decreased urinary output; Coe catheter placed for strict I&O's Prerenal (hypotension, sepsis) vs embolic injury. Continue IVF. IV albumin. PRBCs today. Coe for strict I&Os Avoid nephrotoxic medications as able. Daily chemistries. Consider renal ultrasound. - Time Time Spent with patient: 25-34 minutes Medications reviewed and adjusted accordingly: Yes Anticipated discharge: [facility] Within: when bed available
[2019-04-11 15:18] VITALS: BP 102/60
--- NOTE | 2019-04-14 13:42 | Progress Note ---
Provider Note Provider Note: Late entry - pt not at [facility] presently. Review of my last note - some sort of error appears to have occurred in its submission. 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 Positive IGRA or PPD would be expected in this situation. 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 From this standpoint, airborne precautions can be discontinued. No TB treatment indicated. Hay Barragan MD [facility]
== END 2019-04-11 15:52 | disposition short-term general hospital (02) | DRG 288 ==
LOC: ER 13:52 → EH 18:04 → 3N 21:45
PROVIDERS: ADMIT Internal Medicine; ATTEND Internal Medicine
PROC: 02HV33Z Insertion of Infusion Device into Superior Vena Cava, Percutaneous Approach (ICD-10-PCS; principal; 2019-04-03)
PROC: B518ZZA Fluoroscopy of Superior Vena Cava, Guidance (ICD-10-PCS; 2019-04-03)
PROC: B548ZZA Ultrasonography of Superior Vena Cava, Guidance (ICD-10-PCS; 2019-04-03)
PROC: 30233N1 Transfusion of Nonautologous Red Blood Cells into Peripheral Vein, Percutaneous Approach (ICD-10-PCS; 2019-04-11)
DX: I33.0 Acute and subacute infective endocarditis (principal); I26.90 Septic pulmonary embolism without acute cor pulmonale; E87.1 Hypo-osmolality and hyponatremia; B95.61 Methicillin susceptible Staphylococcus aureus infection as the cause of diseases classified elsewhere; B18.2 Chronic viral hepatitis C; E87.6 Hypokalemia; F11.10 Opioid abuse, uncomplicated; R52 Pain, unspecified; E83.51 Hypocalcemia; D64.9 Anemia, unspecified; M53.3 Sacrococcygeal disorders, not elsewhere classified; Z88.6 Allergy status to analgesic agent; Z88.8 Allergy status to other drugs, medicaments and biological substances; S40.022A Contusion of left upper arm, initial encounter; S40.021A Contusion of right upper arm, initial encounter; S20.219A Contusion of unspecified front wall of thorax, initial encounter; S30.0XXA Contusion of lower back and pelvis, initial encounter; Y04.0XXA Assault by unarmed brawl or fight, initial encounter; Y07.59 Other non-family member, perpetrator of maltreatment and neglect; F17.210 Nicotine dependence, cigarettes, uncomplicated
CPT/HCPCS: 36415; 36430; 36569; 71046; 71275; 72110; 72170; 72220; 74177; 76937; 77001; 80048; 80053; 80074; 80202; 80307; 81001; 81025; 82272; 83605; 83735; 84100; 85025; 85027; 86480; 86695; 86701; 86850; 86900; 86901; 86920; 87015; 87040; 87070; 87077; 87116; 87186; 87205; 87206; 93306; 96360; 99285; J0610; J0692; J1170; J1642; J1940; J2060; J2405; J2543; J3370; J3475; J3480; J3490; J7030; J7050; J7060; P9016; P9047; S0032